=== PATIENT | male | born 1960 | race African-American/Black ===

== ENCOUNTER 2022-02-24 02:52 | Emergency (ER) | payer MEDICAID, SELFPAY ==
--- NOTE | ~2022-02-24 | XR_ITS ---
EXAMINATION: XR SHOULDER, RIGHT CLINICAL INFORMATION: Pain COMPARISON: None TECHNIQUE: Three views of the right shoulder. FINDINGS: Glenohumeral alignment is anatomic. No acute fracture is seen. Soft tissue calcification lateral to the humeral head favors calcific rotator cuff tendinopathy. The acromioclavicular joint appears intact with mild degenerative change. XR/XR shoulder RT min 2V IMPRESSION: Calcific rotator cuff tendinopathy. No acute osseous findings.
[2022-02-24 03:26] VITALS: BP 154/94; PULSE 81; RESP 20; TEMP 36.6; O2SAT 93; BMI 28.2
--- NOTE | 2022-02-24 03:30 | ED.EXTPRO ---
HPI - Extremity Problem General Chief complaint: Extremity Problem Stated complaint: right shoulder pain Time Seen by Provider: 02/24/22 03:30 Source: patient Mode of arrival: ambulatory Limitations: no limitations History of Present Illness MD Complaint: joint pain Onset (ago): day(s) (yesterday ) Pain Consistency: constant Location: right and upper extremity (shoulder) Quality: aching and constant Radiation: none Relieving factors: immobilization Exacerbating factors: range of motion and palpation Associated symptoms: denies other symptoms Context: other (woke up like this) Related Data Previous Rx's Medication Instructions Recorded cyclobenzaprine 10 mg tablet 10 mg PO TID PRN muscle spasm #14 02/24/22 tabs diclofenac sodium 1 % topical gel 2 g topical QID #100 grams 02/24/22 (Voltaren Arthritis Pain) prednisone 20 mg tablet 40 mg PO DAILY 5 days #10 tabs 02/24/22 Allergies Allergy/AdvReac Type Severity Reaction Status Date / Time Penicillins [PENICILLINS] Allergy Unknown UNKNOWN Verified 02/24/22 03:29 Review of Systems Review of Systems: Constitutional : No Fever, No Chills ENT/Mouth : No Ear Pain, No Hoarseness, No sore throat Eyes: No Eye Pain, No Swelling, No Redness, No Foreign Body Cardiovascular : No Chest Pain, No SOB Respiratory : No Cough, No Dyspnea Gastrointestinal : No Nausea, No Vomiting, No Diarrhea, No abdominal Pain Genitourinary : No Dysuria, No Hematuria Musculoskeletal : positive joint pain, No Myalgias, No Joint Swelling Skin : No Skin lacerations, No rash Neuro : No Weakness, No Numbness, No Loss of Consciousness, No Dizziness, No Headache [facility], [facility] Past Medical History Medical History Arthritis Asthma Social History Social History (Updated 02/24/22 @ 04:01 by Elisa Jon DO) Patient Tobacco Use Status: Current everyday Tobacco user Advance Directives: No Physical Exam Vital Signs: Vital Signs: Last Vital Signs Temp 97.9 F 02/24/22 03:26 Pulse 84 02/24/22 04:25 Resp 18 02/24/22 04:25 BP 146/80 H 02/24/22 04:25 Pulse Ox 98 02/24/22 04:25 O2 Del Method 02/24/22 04:25 BMI result Body Mass Index 28.2 Appearance: Alert. Oriented X3. No acute distress. Eyes: Pupils equal, round and reactive to light. ENT: Pharynx normal. Neck: Normal inspection. Neck supple. CVS: Normal heart rate and rhythm. Pulses normal. Respiratory: No respiratory distress. Breath sounds normal. Abdomen: atraumatic Skin: Skin warm and dry. Normal skin color. Normal skin turgor. Extremities: No lower extremity edema. R shoulder pain ttp along deltoid but no discoloration/redness/swelling noted, no R axillary swelling or LAD - distal NV intact Neuro: Oriented X 3. No motor deficit. No sensory deficit. MDM - Extremity (Nontraumatic) MDM Narrative Medical decision making narrative: 61 yo male with hx of asthma and arthritis comes in with atraumatic R shoulder pain - no signs of swelling or infection - distal NV intact. He will get xray. He took and ASA and a percocet that he had leftover from a doctor friendly gesture I have aches and pains . Dispo per results and findings. Procedures Orthopedic Splinting/Casting Injury #1: Side: right Upper Extremity Injury Location: shoulder Upper Extremity Immobilizer: sling/shoulder immobilizer Discharge Plan Discharge Clinical Impression: Tendonitis Acute shoulder pain Qualifiers: Laterality: right Qualified Code(s): M25.511 - Pain in right shoulder Patient Disposition: Home, Self-Care Instructions: Arthralgia (ED), Tendinitis (ED), Shoulder Pain (ED) Additional Instructions: return to ED for any worsening symptoms or concerns Prescriptions: New cyclobenzaprine 10 mg tablet 10 mg PO TID PRN (Reason: muscle spasm) Qty: 14 0RF diclofenac sodium [Voltaren Arthritis Pain] 1 % gel 2 g topical QID Qty: 100 0RF Rx Instructions: apply to single elbow, wrist or hand; for hand includes palm/fingers/back of hand prednisone 20 mg tablet 40 mg PO DAILY 5 Days Qty: 10 0RF Referrals: Physician,None [Primary Care Provider] - (PCP if not better in 2 days) Stand Alone Forms: Work/School Release
[2022-02-24] MEDS: Cyclobenzaprine HCl 10 MG TABLET PO (04:23)
[2022-02-24] MEDS: Acetaminophen 325 MG TABLET 650 MG PO (04:23)
[2022-02-24 04:25] VITALS: BP 146/80; PULSE 84; RESP 18; O2SAT 98
--- NOTE | 2022-02-24 05:14 | PC.NURSE ---
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
== END 2022-02-24 05:50 | disposition home or self-care (01) ==
PROVIDERS: Emergency Provider Emergency Medicine
DX: M75.31 Calcific tendinitis of right shoulder (principal); M25.511 Pain in right shoulder; F17.200 Nicotine dependence, unspecified, uncomplicated
CPT/HCPCS: 73030; 99283; 99284

== ENCOUNTER 2022-05-03 03:18 | Emergency (ER) | payer OTHER, SELFPAY ==
--- NOTE | ~2022-05-03 | XR_ITS ---
EXAMINATION: XR ankle RT min 3V, XR foot RT min 3V CLINICAL INFORMATION: Reason for Exam swelling COMPARISON: None. FINDINGS: No acute fracture or dislocation. Ankle mortise is congruent. Talar dome intact. Well-corticated ossific density distal to the medial malleolus is chronic and/or degenerative in nature. Small tibiotalar marginal osteophytes. Moderate plantar calcaneal enthesophyte. Prominent marginal osteophytes of the first metatarsophalangeal joint with accompanying joint space narrowing. Diffuse soft tissue swelling about the ankle. No ankle joint effusion. XR/XR ankle RT min 3V IMPRESSION: No acute fracture or dislocation.
--- NOTE | ~2022-05-03 | XR_ITS ---
EXAMINATION: XR ankle RT min 3V, XR foot RT min 3V CLINICAL INFORMATION: Reason for Exam swelling COMPARISON: None. FINDINGS: No acute fracture or dislocation. Ankle mortise is congruent. Talar dome intact. Well-corticated ossific density distal to the medial malleolus is chronic and/or degenerative in nature. Small tibiotalar marginal osteophytes. Moderate plantar calcaneal enthesophyte. Prominent marginal osteophytes of the first metatarsophalangeal joint with accompanying joint space narrowing. Diffuse soft tissue swelling about the ankle. No ankle joint effusion. XR/XR foot RT min 3V IMPRESSION: No acute fracture or dislocation.
--- NOTE | ~2022-05-03 | US_ITS ---
EXAMINATION: US VENOUS ULTRASOUND WITH DOPPLER LOWER EXTREMITY, BILATERAL CLINICAL INFORMATION: Lower extremity pain and swelling. COMPARISON: None TECHNIQUE: Ultrasound of the deep veins is performed from the hip to the calf with compression sonography and color and pulse Doppler assessment. Spectral analysis with color-flow imaging is performed. FINDINGS: There is normal venous compression and respiratory variation and augmented flow. The visualized common femoral vein, superficial femoral vein, profunda femoral vein, popliteal vein, and the trifurcation region shows no evidence of deep venous thrombosis. No right popliteal cyst bilaterally. Reniform inguinal lymph nodes in long axis of to 1.7 cm on the right and 1.2 cm on the left. No surrounding abnormality. If the patient's symptoms persist, followup ultrasound in 5 days 7 days might be of value to exclude proximal propagation from a non-visualized calf vein. US/US venous duplex LE RT IMPRESSION: No evidence for deep venous thrombus in the visualized veins of the bilateral lower extremities.
[2022-05-03 03:20] VITALS: BP 152/82; PULSE 86; RESP 19; TEMP 36.2; O2SAT 95; BMI 25.7
[2022-05-03 05:38] VITALS: BP 185/88; PULSE 77; RESP 18; TEMP 36.9; O2SAT 95
--- NOTE | 2022-05-03 08:08 | ED.EXTPRO ---
HPI - Extremity Problem General Chief complaint: Extremity Injury, Lower Stated complaint: R Ankle pain Time Seen by Provider: 05/03/22 08:08 Source: patient Mode of arrival: ambulatory Limitations: no limitations History of Present Illness HPI Narrative: 61 yo male with hx of arthritis notes R leg swelling and ankle giving out on him the past week. No known issues with swelling/kidneys not on diuretics. He denies travel or procedures. No known trauma. MD Complaint: extremity pain and extremity swelling Onset (ago): week(s) (1) Pain Consistency: constant Location: right and lower extremity Quality: aching and dull Radiation: none Relieving factors: immobilization Exacerbating factors: weight bearing and walking Associated symptoms: other (edema R > L leg) Related Data Previous Rx's Medication Instructions Recorded cyclobenzaprine 10 mg tablet 10 mg PO TID PRN muscle spasm #14 02/24/22 tabs diclofenac sodium 1 % topical gel 2 g topical QID #100 grams 02/24/22 (Voltaren Arthritis Pain) prednisone 20 mg tablet 40 mg PO DAILY 5 days #10 tabs 02/24/22 furosemide 20 mg tablet 20 mg PO DAILY #4 tabs 05/03/22 Allergies Allergy/AdvReac Type Severity Reaction Status Date / Time Penicillins [PENICILLINS] Allergy Unknown UNKNOWN Verified 02/24/22 03:29 Review of Systems Review of Systems: Constitutional : No Fever, No Chills ENT/Mouth : No Ear Pain, No Hoarseness, No sore throat Eyes: No Eye Pain, No Swelling, No Redness, No Foreign Body Cardiovascular : No Chest Pain, No SOB, pos edema Respiratory : No Cough, No Dyspnea Gastrointestinal : No Nausea, No Vomiting, No Diarrhea, No abdominal Pain Genitourinary : No Dysuria, No Hematuria Musculoskeletal : positive joint pain, No Myalgias, No Joint Swelling Skin : No Skin lacerations, No rash Neuro : No Weakness, No Numbness, No Loss of Consciousness, No Dizziness, No Headache Psych : No Anxiety/Panic, No Depression Heme/Lymph: no easy bruising, no Lymphadenopathy Endocrine : No Polyuria, No Polydipsia All other systems reviewed and are negative [facility] Past Medical History Attestation statement: The following information was validated with the patient. Medical History Arthritis Asthma Social History Social History Patient Tobacco Use Status: Current everyday Tobacco user Advance Directives: No Advance Directives Information Provided: Yes Physical Exam Vital Signs: Vital Signs: Last Vital Signs Temp 98.5 F 05/03/22 05:38 Pulse 77 05/03/22 05:38 Resp 18 05/03/22 05:38 BP 185/88 H 05/03/22 05:38 Pulse Ox 95 05/03/22 05:38 O2 Del Method 05/03/22 05:38 BMI result Body Mass Index 25.7 Appearance: Alert. Oriented X3. No acute distress. Eyes: Pupils equal, round and reactive to light. ENT: Pharynx normal. Neck: Normal inspection. Neck supple. CVS: Normal heart rate and rhythm. Pulses normal. Respiratory: No respiratory distress. Breath sounds normal. Abdomen: Soft and nontender. Skin: Skin warm and dry. Normal skin color. Normal skin turgor. Extremities: R> L 1+ pitting edema, ankle has swelling but no redness or warmth, distal pulses intact can range joint without pain Neuro: Oriented X 3. No motor deficit. No sensory deficit. Course Course Course Narrative: DVT study negative, xrays negative, labs wnl will start on lasix and refer to PCP place in splint for 1 week for comfort MDM - Extremity (Nontraumatic) MDM Narrative Medical decision making narrative: 61 yo male with hx of arthritis comes in with R > L leg swelling and ankle giving out no known trauma xrays negative at this time will obtain Cr, liver, BNP and DVT studies. Dispo per results and findings. Lab Data Result diagrams: 05/03/22 09:36 05/03/22 09:36 Labs: Lab Results 05/03/22 05/03/22 05/03/22 Range/Units 09:36 09:36 09:36 WBC 7.2 (4.8-10.8) X10*3/uL RBC 4.72 (4.60-5.80) X10*6/uL Hgb 13.6 L (14.0-18.0) g/dl Hct 43.5 (42.0-52.0) % MCV 92.2 (80.0-98.0) fL MCH 28.8 (27.0-33.0) pg MCHC 31.3 (31.0-36.0) g/dl RDW 14.0 (11.0-16.0) % Plt Count 287 (160-400) X10*3/uL MPV 10.6 (9.4-12.4) fL Immature Gran % (Auto) 0.4 (0.0-0.4) % Neut % (Auto) 60.2 (45-73) % Lymph % (Auto) 24.9 (20-40) % [place] % (Auto) 9.7 (2-11) % Eos % (Auto) 4.2 H (0-4) % Baso % (Auto) 0.6 (0-2) % Lymph # (Auto) 1.8 (1.2-4.9) X10*3/uL [place] # (Auto) 0.7 (0.1-1.2) X10*3/uL Eos # (Auto) 0.3 (0.0-0.4) X10*3/uL Baso # (Auto) 0.0 (0.0-0.2) X10*3/uL Abs Immat Gran (auto) 0.03 (0.00-0.03) X10*3/uL Absolute Neuts (auto) 4.3 (2.0-8.3) x10*3/uL Absolute Nucleated RBC 0.000 (0.0-0.012) X10*3/uL Nucleated RBC % (auto) 0.0 (0.0-0.2) /100WBC Sodium 139 (135-145) mmol/L Potassium 4.8 (3.3-5.1) mmol/L Chloride 98 (96-108) mmol/L Carbon Dioxide 29 (22-29) mmol/L Anion Gap 17 (12-20) BUN 7 L (9-16) mg/dL Creatinine 0.64 (0.5-1.4) mg/dL Estim Creat Clear Calc 139.1 Estimated GFR > 60 Random Glucose 102 (60-115) mg/dL Calcium 9.4 (8.4-10.2) mg/dL Total Bilirubin 0.3 (0.0-1.0) mg/dL Direct Bilirubin < 0.2 (0.0-0.5) mg/dL AST 18 (5-37) U/L ALT 21 (0-40) U/L Alkaline Phosphatase 106 (39-117) U/L B-Natriuretic Peptide 19 (<100) pg/mL Total Protein 7.5 (6.5-8.0) g/dL Albumin 4.1 (3.5-5.0) g/dL Procedures Orthopedic Splinting/Casting Injury #1: Side: right Lower Extremity Injury Location: ankle Lower Extremity Immobilizer: [employer] Discharge Plan Discharge Clinical Impression: Pedal edema Acute ankle pain Qualifiers: Laterality: right Qualified Code(s): M25.571 - Pain in right ankle and joints of right foot Patient Disposition: Home, Self-Care Instructions: Arthralgia (ED), Edema (ED) Additional Instructions: return to ED for any worsening symptoms or concerns wear compression stockings (soccer socks) take diuretics if not better please follow up with primary care doctor in 1 week Prescriptions: New furosemide 20 mg tablet 20 mg PO DAILY Qty: 4 0RF No Action cyclobenzaprine 10 mg tablet 10 mg PO TID PRN (Reason: muscle spasm) Qty: 14 0RF diclofenac sodium [Voltaren Arthritis Pain] 1 % gel 2 g topical QID Qty: 100 0RF Rx Instructions: apply to single elbow, wrist or hand; for hand includes palm/fingers/back of hand prednisone 20 mg tablet 40 mg PO DAILY 5 Days Qty: 10 0RF Stand Alone Forms: Work/School Release
[2022-05-03 09:45] LABS: MANUAL DIFF FLAG NO
[2022-05-03 10:00] LABS: Basophils Percent Auto 0.6 % (0-2); Eosinophils Absolute Auto 0.3 X10*3/uL (0.0-0.4); Eosinophils Percent Auto 4.2 % (0-4); Hematocrit 43.5 % (42.0-52.0); Hemoglobin 13.6 g/dl (14.0-18.0); Imm Gran Abs Auto 0.03 X10*3/uL (0.00-0.03); Imm Gran Pct Auto 0.4 % (0.0-0.4); Lymphocytes Absolute Auto 1.8 X10*3/uL (1.2-4.9); Lymphocytes Percent Auto 24.9 % (20-40); Mean Corpuscular HGB Conc 31.3 g/dl (31.0-36.0); Mean Corpuscular Hemoglobin 28.8 pg (27.0-33.0); Mean Corpuscular Volume 92.2 fL (80.0-98.0); Mean Platelet Volume 10.6 fL (9.4-12.4); Monocytes Absolute Auto 0.7 X10*3/uL (0.1-1.2); Monocytes Percent Auto 9.7 % (2-11); Neutrophils Absolute Auto 4.3 x10*3/uL (2.0-8.3); Neutrophils Percent Auto 60.2 % (45-73); Platelet Count 287 X10*3/uL (160-400); Red Blood Count 4.72 X10*6/uL (4.60-5.80); White Blood Count 7.2 X10*3/uL (4.8-10.8)
[2022-05-03 10:15] LABS: Alanine Aminotransferase 21 U/L (0-40); Albumin Level 4.1 g/dL (3.5-5.0); Alkaline Phosphatase 106 U/L (39-117); Anion Gap 17 (12-20); Aspartate Amino Transferase 18 U/L (5-37); B Type Natriuretic Peptide 19 pg/mL (<100); Bilirubin Direct < 0.2 mg/dL (0.0-0.5); Bilirubin Total 0.3 mg/dL (0.0-1.0); Blood Urea Nitrogen 7 mg/dL (9-16); Calcium 9.4 mg/dL (8.4-10.2); Carbon Dioxide 29 mmol/L (22-29); Chloride 98 mmol/L (96-108); Creatinine Clr Calc Pharmacy 139.1; Estimated Glomerular Filt Rate > 60; Glucose Random 102 mg/dL (60-115); Potassium 4.8 mmol/L (3.3-5.1); Sodium 139 mmol/L (135-145); Total Protein 7.5 g/dL (6.5-8.0)
== END 2022-05-03 10:36 | disposition home or self-care (01) ==
PROVIDERS: Emergency Provider Emergency Medicine
DX: R60.0 Localized edema (principal); M25.571 Pain in right ankle and joints of right foot; F17.200 Nicotine dependence, unspecified, uncomplicated
CPT/HCPCS: 36415; 73610; 73630; 80048; 80076; 83880; 85025; 93971; 99283; 99284

== ENCOUNTER 2022-09-21 06:09 | Outpatient (REF) | payer OTHER, SELFPAY ==
--- NOTE | ~2022-09-21 | XR_ITS ---
EXAMINATION: XR KNEE, LEFT CLINICAL INFORMATION: Pain. COMPARISON: No similar priors. TECHNIQUE: Four views of the left knee. FINDINGS: No acute fractures or subluxation. Moderate to severe tricompartmental joint space narrowing with subcortical sclerosis and marginal osteophytes. No chondrocalcinosis. Small joint effusion. No abnormal soft tissue calcifications. XR/XR knee LT 3V IMPRESSION: 1. No acute fractures or subluxation. 2. Moderate to severe tricompartmental osteoarthritis. 3. Small joint effusion.
[2022-09-21 06:22] LABS: MANUAL DIFF FLAG NO
[2022-09-21 07:57] LABS: Basophils Absolute Auto 0.1 X10*3/uL (0.0-0.2); Basophils Percent Auto 0.9 % (0-2); Eosinophils Absolute Auto 0.6 X10*3/uL (0.0-0.4); Eosinophils Percent Auto 5.7 % (0-4); Hemoglobin 13.7 g/dl (14.0-18.0); Imm Gran Abs Auto 0.05 X10*3/uL (0.00-0.03); Imm Gran Pct Auto 0.5 % (0.0-0.4); Lymphocytes Absolute Auto 3.8 X10*3/uL (1.2-4.9); Lymphocytes Percent Auto 37.4 % (20-40); Mean Corpuscular HGB Conc 31.9 g/dl (31.0-36.0); Mean Corpuscular Hemoglobin 29.7 pg (27.0-33.0); Mean Corpuscular Volume 93.3 fL (80.0-98.0); Mean Platelet Volume 10.7 fL (9.4-12.4); Monocytes Percent Auto 9.6 % (2-11); Neutrophils Absolute Auto 4.7 x10*3/uL (2.0-8.3); Neutrophils Percent Auto 45.9 % (45-73); Platelet Count 288 X10*3/uL (160-400); Red Blood Count 4.61 X10*6/uL (4.60-5.80); Red Cell Distribution Width 13.9 % (11.0-16.0); White Blood Count 10.2 X10*3/uL (4.8-10.8)
[2022-09-21 08:26] LABS: Alanine Aminotransferase 45 U/L (0-40); Albumin Level 3.9 g/dL (3.5-5.0); Alkaline Phosphatase 115 U/L (39-117); Anion Gap 14 (12-20); Aspartate Amino Transferase 26 U/L (5-37); Bilirubin Total 0.3 mg/dL (0.0-1.0); Blood Urea Nitrogen 10 mg/dL (9-16); Calcium 8.9 mg/dL (8.4-10.2); Carbon Dioxide 29 mmol/L (22-29); Chloride 105 mmol/L (96-108); Cholesterol 109 mg/dL; Estimated Glomerular Filt Rate > 60; Glucose Fasting 133 mg/dL (60-99); HDL Cholesterol 43 mg/dL; LDL Cholesterol Calculated 46 mg/dl; Potassium 3.9 mmol/L (3.3-5.1); Sodium 144 mmol/L (135-145); Total Protein 6.6 g/dL (6.5-8.0); Triglycerides 103 mg/dL
[2022-09-21 08:43] LABS: Erythrocyte Sedimentation Rate 8 MM/HR (0-15)
[2022-09-21 08:44] LABS: Prostate Specific Antigen Scr 0.68 ng/mL (<0.05-4.0); TSH reflex Free T4 2.04 uIU/mL (0.32-4.0)
== END 2022-09-21 06:10 | disposition home or self-care (01) ==
LOC: HO.LAB 06:09
PROVIDERS: PCP Family Medicine; Visit Provider Family Medicine
DX: Z00.00 Encounter for general adult medical examination without abnormal findings (principal); Z12.5 Encounter for screening for malignant neoplasm of prostate; M25.562 Pain in left knee
CPT/HCPCS: 36415; 73562; 80053; 80061; 84153; 84443; 85025; 85652

== ENCOUNTER 2022-10-05 12:26 | Outpatient (REF) | payer OTHER, SELFPAY ==
--- NOTE | ~2022-10-05 | XR_ITS ---
EXAMINATION: XR KNEE AP STANDING CLINICAL INFORMATION: Pain. COMPARISON: None TECHNIQUE: AP bilateral standing view of the knees was obtained. FINDINGS: Bony mineralization is normal. There is moderately severe narrowing of the medial joint space compartment of the right knee, and the lateral joint space compartment is well-maintained. The lateral and medial joint space compartments of the right knee show slight peripheral osteophyte formation. There is mild to moderate narrowing of the lateral joint space compartment of the left knee, and the medial joint space compartment is well-maintained. There is a mild varus configuration of the right knee. XR/XR knee standing BI IMPRESSION: 1. There is moderately severe osteoarthritic change of the medial joint space compartment of the right knee, and very mild osteoarthritic change is seen of the lateral joint space compartment. There is a secondary mild varus configuration. 2. There is mild to moderate osteoarthritic change of the lateral joint space compartment of the left knee.
== END 2022-10-05 12:27 | disposition home or self-care (01) ==
LOC: HO.HOSX 12:26
PROVIDERS: Visit Provider Physician Assistant
DX: M17.12 Unilateral primary osteoarthritis, left knee (principal)
CPT/HCPCS: 20610; 73565; 99202; J1040

== ENCOUNTER 2022-11-10 09:45 | Outpatient (REF) | payer OTHER, SELFPAY ==
[2022-11-10 12:19] LABS: Alanine Aminotransferase 35 U/L (0-40); Albumin Level 3.9 g/dL (3.5-5.0); Alkaline Phosphatase 120 U/L (39-117); Anion Gap 11 (12-20); Aspartate Amino Transferase 26 U/L (5-37); Bilirubin Total 0.4 mg/dL (0.0-1.0); Blood Urea Nitrogen 8 mg/dL (9-16); Calcium 9.1 mg/dL (8.4-10.2); Carbon Dioxide 35 mmol/L (22-29); Chloride 102 mmol/L (96-108); Estimated Glomerular Filt Rate > 60; Glucose Fasting 105 mg/dL (60-99); Potassium 4.7 mmol/L (3.3-5.1); Sodium 143 mmol/L (135-145); Total Protein 6.8 g/dL (6.5-8.0)
[2022-11-10 12:21] LABS: B Type Natriuretic Peptide 11 pg/mL (<100)
== END 2022-11-10 09:46 | disposition home or self-care (01) ==
LOC: HO.WFDLDS 09:45
PROVIDERS: Visit Provider Family Medicine
DX: Z00.00 Encounter for general adult medical examination without abnormal findings (principal); I50.9 Heart failure, unspecified; R73.01 Impaired fasting glucose
CPT/HCPCS: 36415; 80053; 83880

== ENCOUNTER → 2022-11-17 09:11 | Outpatient (BNVA) | payer OTHER, SELFPAY | PROVIDERS: PCP Family Medicine; Visit Provider Physician Assistant | DX: M17.12 Unilateral primary osteoarthritis, left knee (principal); M25.562 Pain in left knee | CPT/HCPCS: 99212 ==

== ENCOUNTER → 2022-12-21 09:21 | Outpatient (BNVA) | payer OTHER, SELFPAY | PROVIDERS: PCP Family Medicine; Visit Provider Surgery Vascular Surgery | DX: I83.11 Varicose veins of right lower extremity with inflammation (principal); F17.210 Nicotine dependence, cigarettes, uncomplicated | CPT/HCPCS: 99202 ==

== ENCOUNTER 2022-12-26 09:00 | Outpatient (RCR) | payer OTHER, SELFPAY ==
--- NOTE | 2022-11-07 13:55 | MHC.PT.EP ---
[facility] [place] Office [place] Office [place] Office [address] Lesia Urbina [address] [phone] F: [phone] F: [phone] F: [phone] F: [phone] Physical Therapy Plan of Care Date of Evaluation: Date of Surgery: N/A Diagnosis: OA of the L knee () Assessment: pt is a 62 y/o male presenting to physical therapy w/ referring diagnosis of osteoarthritis of left knee. Impairments include pain, decreased range of motion, decreased strength, impaired functional mobility, impaired postural awareness, and altered ambulation mechanics. pt is a good candidate for skilled PT due to age, potential remediation of impairments, typical disease/condition progression and prognosis, comorbidities, and motivation. pt would benefit from skilled PT intervention to provide a tailored strengthening and stretching exercise program, functional training, gait training, postural re-training, neuromuscular re-education, modalities as needed for pain, equipment safety demonstration. Frequency and Duration: The patient will be seen 2x/wk for 4 wks Short Term Goals: pt will be I w/ HEP to promote self-management of condition. pt will improve L knee extension to 0 degrees to improve stair tolerance. [facility] Goals: pt will improve L knee strength to 5/5 to promote ease in sit to stand transfers. pt will report a statistically significant improvement in self-reported outcome, LEFI, to promote return to PLOF. Treatment Plan: Modalities to reduce pain, spasms and effusion. Manual therapy to restore motion and function. Therapeutic exercise to improve strength and flexibility. Neuromuscular re-education for posture and balance. Therapeutic activities to return to functional activities of daily living. Electronically signed by: Dary Gomez PT, DPT Please sign and return to therapist. Thank you for your referral.
--- NOTE | 2023-01-15 15:07 | MHC.PT.DC ---
[facility] [place] Office [place] Office [place] Office [address] Lesia Urbina 140 [facility] [phone] F: [phone] F: [phone] F: [phone] F: [phone] Physical Therapy Discharge Report Diagnosis: OA of the L knee (RC) Date of Surgery: N/A Date of Evaluation: 11/07/22 Date of Discharge: 01/15/23 Treatments to Date: 6 Cancellations to Date: 5 No Shows to Date: 0 Discharge Status: Visit Non-compliance Discharge Summary: The patient has not been seen in nearly three weeks. He has not followed-up to schedule any additional appointments. He is being discharged at this time. His plan of care was complicated by other comorbidities and multiple other medical appointments for screenings. Electronically signed by: Dary Gutierrez PT, DPT Please sign and return to therapist. Thank you for your referral.
== END 2023-01-15 15:07 | disposition home or self-care (01) ==
LOC: HO.PT 09:00
PROVIDERS: PCP Family Medicine; Visit Provider Physician Assistant
DX: M17.12 Unilateral primary osteoarthritis, left knee (principal)
CPT/HCPCS: 97110; 97140; 97162

== ENCOUNTER 2023-01-08 08:28 | Outpatient (REF) | payer OTHER, SELFPAY ==
--- NOTE | ~2023-01-08 | US_ITS ---
EXAMINATION: US LOWER EXTREMITY VENOUS (REFLUX EXAM), BILATERAL CLINICAL INDICATION: Varicose veins COMPARISON: None. TECHNIQUE: Color flow triplex imaging and compression Doppler was performed to evaluate both the deep and the superficial systems bilaterally. To evaluate the superficial system, the examination was performed in the upright position. Color-flow Doppler ultrasound and compression ultrasound were utilized. In addition, maneuvers were utilized to demonstrate reflux. FINDINGS: 1. DEEP VENOUS ULTRASOUND OF THE RIGHT LOWER EXTREMITY: Common Femoral Vein: Compressible, normal respiratory variation and augmented flow. Femoral Vein: Compressible, normal color flow and augmentation. Popliteal Vein: Compressible, normal augmentation. Deep Reflux: There is no evidence of reflux in the deep system in either the common femoral vein or the popliteal vein. There is no evidence of a Musa's cyst. 2. SUPERFICIAL ULTRASOUND WITH DOPPLER OF RIGHT LOWER EXTREMITY: GREAT SAPHENOUS VEIN: Saphenofemoral Junction: 0.8 cm; Reflux: 0 ms Proximal Thigh: 0.6 cm; Reflux: 0 ms Mid Thigh: 0.2 cm; Reflux: 0 ms Above Knee: 0.3 cm; Reflux: 1248 ms At Knee: 0.3 cm; Reflux: 1888 ms Below Knee: 0.3 cm; Reflux: 2872 ms Mid Calf: 0.2 cm; Reflux: 2828 ms Ankle: 0.3 cm; Reflux: 0 ms DUPLICATED MEDIAL GREAT SAPHENOUS VEIN: Diameter: None imaged Reflux: NA DUPLICATED LATERAL GREAT SAPHENOUS VEIN: Proximal: 0.4 cm; Reflux: 0 ms Distal: 0.3 cm; Reflux: 0 ms SMALL SAPHENOUS VEIN: Proximal: 0.5 cm; Reflux: 0 ms Distal: 0.4 cm; Reflux: 0 ms VEIN OF GIACOMINI: Size: NA Reflux: NA PERFORATORS: Location: Distal calf Size: 0.2cm Reflux: NA VARICOSITIES: Location: Thigh prox Size: 0.3cm Reflux: 0 Location: Prox calf Size: 0.3cm Reflux: [id number] 3. DEEP VENOUS ULTRASOUND OF THE LEFT LOWER EXTREMITY: Common Femoral Vein: Compressible, normal respiratory variation and augmented flow. Femoral Vein: Compressible, normal color flow and augmentation. Popliteal Vein: Compressible, normal augmentation. Deep Reflux: There is no evidence of reflux in the deep system in either the common femoral vein or the popliteal vein. There is no evidence of a Musa's cyst. 4. SUPERFICIAL ULTRASOUND WITH DOPPLER OF LEFT LOWER EXTREMITY: GREAT SAPHENOUS VEIN: Saphenofemoral Junction: 0.8 cm; Reflux: 0 ms Proximal Thigh: 0.4 cm; Reflux: 0 ms Mid Thigh: 0.3 cm; Reflux: 0 ms Above Knee: 0.3 cm; Reflux: 0 ms At Knee: 0.3 cm; Reflux: 0 ms Below Knee: 0.2 cm; Reflux: 0 ms Mid Calf: 0.2 cm; Reflux: 0 ms Ankle: 0.2 cm; Reflux: 0 ms DUPLICATED MEDIAL GREAT SAPHENOUS VEIN: Diameter: None imaged Reflux: NA DUPLICATED LATERAL GREAT SAPHENOUS VEIN: Proximal: 0.6 cm; Reflux: 0 ms Distal: 0.3 cm; Reflux: 488 ms SMALL SAPHENOUS VEIN: Proximal: 0.7 cm; Reflux: 0 ms Distal: 0.3 cm; Reflux: 0 ms VEIN OF GIACOMINI: Size: NA Reflux: NA PERFORATORS: Location: None imaged Size: NA Reflux: NA VARICOSITIES: Location: None Imaged Size: NA Reflux: NA US/US venous duplex LE BI IMPRESSION: 1. Right: Moderate reflux in the great saphenous vein [id number]. 2. Right small saphenous venous insufficiency. 3. Left: No significant reflux in the great saphenous vein. 4. Reflux in the distal left great saphenous vein.
== END 2023-01-08 08:29 | disposition home or self-care (01) ==
LOC: HO.US 08:28
PROVIDERS: PCP Family Medicine; Visit Provider Surgery Vascular Surgery
DX: I83.11 Varicose veins of right lower extremity with inflammation (principal)
CPT/HCPCS: 93970

== ENCOUNTER 2023-01-26 09:48 | Outpatient (REF) | payer OTHER, SELFPAY ==
--- NOTE | ~2023-01-26 | US_ITS ---
EXAMINATION: US RETROPERITONEAL LIMITED (AORTA) CLINICAL INFORMATION: Family history of AAA. History of smoking. COMPARISON: None available. TECHNIQUE: Griffith-scale, color Doppler and spectral Doppler evaluation of the abdominal aorta. Imaging is somewhat limited by overlapping bowel gas. FINDINGS: The aorta is normal. The measurements of the aorta in maximum AP and transverse dimensions respectively are as follows: Proximal: 2.7 x 2.6 cm. Mid: 2.4 x 2.4 cm. Distal: 2.0 x 2.0 cm. PSV: 87.7 cm/s. The measurements of the common iliac arteries in maximum AP and TRV dimensions are as follows: Right Common Iliac Artery: 1.3 x 1.2 cm. Left Common Iliac Artery: 1.2 x 1.1 cm. US/US abdominal aortic aneurysm IMPRESSION: There is ectasia of the proximal abdominal aorta, without brittany aneurysm formation.
== END 2023-01-26 09:49 | disposition home or self-care (01) ==
LOC: HO.US 09:48
PROVIDERS: PCP Family Medicine; Visit Provider Surgery Vascular Surgery
DX: Z13.6 Encounter for screening for cardiovascular disorders (principal)
CPT/HCPCS: 76706

== ENCOUNTER 2023-02-20 13:53 | Outpatient (AMB) | payer OTHER, SELFPAY ==
--- NOTE | 2023-02-20 13:54 | A.OFFVIS_ITS ---
Intake Intake Visit Reasons: follow up US 01/08/23 &AAA US 01/26/23 Intake Note: Patient is here for a follow up US 01/08/23 and AAA US 01/26/23, patient stated no new symptoms Allergies Penicillins [PENICILLINS] Allergy (Unknown, Verified 02/20/23 13:57) UNKNOWN HPI follow up US 01/08/23 &AAA US 01/26/23 HPI Details Very pleasant 62-year-old gentleman presents for follow-up regarding venous insufficiency. He reports that he has discomfort in bilateral lower extremities in some spots unsteadiness. In addition he does report some back issues. He states that his right leg occasionally has swelling more so in the ankle and calf region in addition he does have some restless leg on that lower extremity as well. He now presents for follow-up regarding his venous insufficiency and he did get a surveillance aortic scan as well. Now presents for vascular evaluation. [facility] Medical History Arthritis Asthma History of [place] (myocardial infarction) Surgical History H/O heart artery stent (~2001) H/O shoulder surgery (~1976) Family History Sister Substance abuse Social History Patient Tobacco Use Status: Current everyday Tobacco user Cigarette Packs Per Day: 1 e-Cigarette/Vaping Use: Never Used Second Hand Smoke Exposure: No service: No Current occupational status: employed Cognitive needs: No Hearing needs: No Vision needs: No Review of Systems Const All systems reviewed & are unremarkable except as noted in HPI and below Reports no additional complaints ENT Reports Normal hearing present Card Denies chest pain, Denies chest pain at rest, Denies chest pain with activity and Denies pedal edema Resp Denies cough GI Denies abdominal pain Musc Denies abnormal gait, Denies muscle cramps and Denies radiating pain into limb Skin/Breast Denies skin ulcer and Denies wounds Neuro Reports Normal hearing present and Denies abnormal gait Psych Reports no additional complaints Physical Exam Const General: cooperative, healthy appearing and comfortable Orientation/consciousness: oriented to person, oriented to place and oriented to time HEENT Head: Yes normal to inspection Neck Neck: Yes normal visual inspection Carotids: no bruits Chest Chest palpation & inspection: normal inspection of the chest Resp Effort & Inspection: normal respiratory effort and able to speak in complete sentences Auscultation: clear to auscultation bilaterally, no crackles, no rales, no rhonchi and no wheezes Cardio Rate: regular rate Rhythm: regular rhythm Heart sounds: S1 normal heart sound present and S2 normal heart sound present Bruits: no carotid bruits Peripheral pulses: Peripheral pulses 2+ throughout GI Inspection: Yes normal to inspection Skin Wounds: no wounds Hair: normal Neuro General: oriented to person, oriented to place and oriented to time Cranial nerves: Yes CN's II-XII intact bilaterally and Yes Normal hearing present Cognition (Neuro): normal cognition Motor exam (neuro): 5/5 motor strength present throughout Extrem Other: venous exam: +2 edema right lower extremity General: No clubbing, No cyanosis and Yes edema Psych Appearance: grossly normal Mental Status: mental status grossly normal Speech and movement: Normal speech and movement present Results Reviewed Results Reviewed: Brief summary of venous insufficiency testing is as follows: right great saphenous vein: Positive right small saphenous vein: negative right accessory vein: none present left great saphenous vein: negative left small saphenous vein: negative left accessory vein: none present Please note there is no evidence of any venous aneurysms or significant tortuosity Aortic ultrasound is negative for any aneurysmal disease. Maximal diameter is 2.4 cm. Written report and images of both were reviewed Assessment & Plan Assessment & Plan (1) Varicose veins of right lower extremity with inflammation: Code(s): I83.11 - Varicose veins of right lower extremity with inflammation Plan: This patient has varicose veins with inflammation. They continue to be a source of discomfort for the patient. The patient has tried conservative treatment with compression, leg elevation and exercise program for over 3 months time. They have been compliant with all treatment. This has provided minimal relief for the patient. I do not anticipate this course of treatment will alter the underlying etiology. The patient has been scheduled for lower extremity venous treatment inclusive of --- right great saphenous vein Cyanoacralate ablation. Risks, benefits, and complications of this procedure has been di scussed in detail with the patient including but not limited to bleeding, infection, and the development of a DVT. The patient has demonstrated a clear understanding and has consented. We will schedule the patient as soon as possible. Thank you for allowing us to participate in this patient's care. If there are any questions or concerns please do not hesitate to contact us. (2) Encounter for abdominal aortic aneurysm (AAA) screening: Code(s): Z13.6 - Encounter for screening for cardiovascular disorders Plan: Negative for any aneurysmal disease on screening ultrasound. We did discuss routine risk factor modification P Coding Level of Care Code Est Pt Level 4 (30501) Diagnoses Varicose veins of right lower extremity with inflammation I83.11 Encounter for abdominal aortic aneurysm (AAA) screening Z13.6
== END 2023-02-20 14:40 | disposition home or self-care (01) ==
PROVIDERS: PCP Family Medicine; Visit Provider Surgery Vascular Surgery
DX: I73.9 Peripheral vascular disease, unspecified (principal); I65.29 Occlusion and stenosis of unspecified carotid artery
CPT/HCPCS: 99214

== ENCOUNTER → 2023-02-20 13:53 | Outpatient (BNVA) | payer OTHER, SELFPAY | PROVIDERS: PCP Family Medicine; Visit Provider Surgery Vascular Surgery | DX: I83.11 Varicose veins of right lower extremity with inflammation (principal); Z13.6 Encounter for screening for cardiovascular disorders | CPT/HCPCS: 99212 ==

== ENCOUNTER 2023-03-30 07:30 | Outpatient (AMB) | payer OTHER, SELFPAY ==
[2023-03-30 07:47] VITALS: BMI 31.8
--- NOTE | 2023-03-30 07:47 | MHC.OFFVIS ---
Intake Vital Signs 03/30/23 07:47 Height 6 ft 2 in Weight 248 lb BMI 31.8 Intake Visit Reasons: Right GSV Venaseal Allergies Penicillins [PENICILLINS] Allergy (Unknown, Verified 02/20/23 13:57) UNKNOWN [facility] Medical History Arthritis Asthma History of [place] (myocardial infarction) Surgical History H/O heart artery stent (~2001) H/O shoulder surgery (~1976) Family History Sister Substance abuse Social History Patient Tobacco Use Status: Current everyday Tobacco user Cigarette Packs Per Day: 1 e-Cigarette/Vaping Use: Never Used Second Hand Smoke Exposure: No service: No Current occupational status: employed Cognitive needs: No Hearing needs: No Vision needs: No Physical Exam Vital Signs: BMI result Body Mass Index 31.8 Office Procedures Vascular Office Procedure Details Details: Diagnosis: Right Leg varicose veins with inflammation Procedure: Endovenous Ablation of the right Great Saphenous Vein with VenaSeal Closure System Anesthesia: Local infiltration 5 cc, Estimated Blood Loss: min Specimen: none Duplex ultrasound was used to map out the insufficient saphenous vein, and access was determined and marked on the overlying skin. The depth and diameter of the vein(s) to be treated was documented. The patient was placed supine on the procedure table and the leg was prepped and draped using sterile technique. Ultasound guidance was again used to localize the access site. 1% lidocaine was injected as a local anesthetic in the subcutaneous tissues at the target location in the GSV in the lower leg. Using ultrasound guidance, access was gained at this location with the 19 gauge thin walled access needle and followed by introduction of a short guidewire, location confirmed with ultrasound. A small, 3 mm incision was made at the access site to allow for introduction and placement of the 7 Fr x7cm introducer/dilator. The dilator and guidewire were removed. The 0.035 guidewire from the VenaSeal kit was then introduced and positioned at the saphenofemoral junction using ultrasound guidance. The 80 cm 7 Fr introducer sheath/dilator was positioned 5cm from the saphenofemoral junction. The guidewire and dilator were removed, and the remaining sheath was flushed with sterile saline, with the syringe remaining in place prior to the next steps. The cyanoacrylate adhesive was precisely primed into the 5 F delivery catheter and this catheter/syringe combination was attached within the dispenser gun. This assembly was introduced through the 7F sheath and positioned 5 cm caudal of the saphenofemoral junction under ultrasound guidance. The steps from the IFU were followed for dispensing amounts, locations and compression times, 2 aliquots proximally with 3 minutes of compression, and 1 aliquot every 3 cm distally with 30 sec of compression along the course of the vessel. Following the last injection and compression sequence, the catheter and introducer sheath were pulled out from the access site. Hemostasis was achieved with manual compression and an adhesive bandage was applied to the incision. Ultrasound confirmed complete coaptation and closure of the treated segments of the GSV, and the absence of any DVT at the saphenofemoral junction. Treatment time was approximately 7 minutes and the vein length treated was 52 cm. The drapes were removed and the patient cleaned and prepared for discharge. Post op ultrasound check is scheduled for 48-72 hours and the patient was given written post-op instructions. 40810 - Endoven Ther Chem Adhes 1st All charges added?: Procedure code (CPT) selection complete Coding Level of Care Code Procedure Only Diagnoses CPT Codes Details - Vascular 3: 43286 - Endoven Ther Chem Adhes 1st ([id number])
== END 2023-03-30 09:04 | disposition home or self-care (01) ==
PROVIDERS: PCP Family Medicine; Visit Provider Surgery Vascular Surgery
DX: I83.11 Varicose veins of right lower extremity with inflammation (principal)
CPT/HCPCS: 36482

== ENCOUNTER → 2023-03-30 07:30 | Outpatient (BNVA) | payer OTHER, SELFPAY | PROVIDERS: PCP Family Medicine; Visit Provider Surgery Vascular Surgery | DX: I83.11 Varicose veins of right lower extremity with inflammation (principal) | CPT/HCPCS: 36482 ==

== ENCOUNTER 2023-04-02 10:19 | Outpatient (REF) | payer OTHER, SELFPAY ==
--- NOTE | ~2023-04-02 | US_ITS ---
EXAMINATION: US VENOUS ULTRASOUND WITH DOPPLER LOWER EXTREMITY, RIGHT CLINICAL INFORMATION: Pain in the right leg COMPARISON: None available. TECHNIQUE: Ultrasound of the deep veins is performed from the hip to the calf with compression sonography and color and pulse Doppler assessment. Spectral analysis with color-flow imaging is performed. FINDINGS: There is normal venous compression and respiratory variation and augmented flow. The visualized common femoral vein, superficial femoral vein, profunda femoral vein, popliteal vein, and the trifurcation region shows no evidence of deep venous thrombosis. There is no significant popliteal fossa cyst. Patient is status post venaseal of greater saphenous vein measured 6.8 cm from superficial femoral junction If the patient's symptoms persist, followup ultrasound in 5 days 7 days might be of value to exclude proximal propagation from a non-visualized calf vein. US/US venous duplex LE RT IMPRESSION: No DVT demonstrated in the right lower extremity.
== END 2023-04-02 10:20 | disposition home or self-care (01) ==
LOC: HO.US 10:19
PROVIDERS: PCP Family Medicine; Visit Provider Surgery Vascular Surgery
DX: M79.604 Pain in right leg (principal)
CPT/HCPCS: 93971

== ENCOUNTER 2023-04-12 08:40 | Outpatient (AMB) | payer OTHER, SELFPAY ==
--- NOTE | 2023-04-12 08:47 | MHC.OFFVIS ---
Intake Vital Signs 04/12/23 08:53 Height 6 ft 2 in Weight 248 lb BMI 31.8 BP 150/88 H Blood Pressure Location Rt brachial Position Sitting Pulse 104 H Pulse Source Pulse Oximeter Pulse Oximetry (%) 99 Oxygen Delivery Method Room Air Intake Visit Reasons: 2 week follow up s/p Right GSV Venaseal 03/30/23 Intake Note: Pt presents to the office today for a 2 week follow up s/p right GSV venaseal 03/30/23. Pt states he is feeling great. Pt states he had swelling in his right leg for a day but it went away after 1 day. Pt denies any numbness or tingling in his feet. Pt states he is using compression stockings but doesn't believe they help. Allergies Penicillins [PENICILLINS] Allergy (Unknown, Verified 04/12/23 08:54) UNKNOWN HPI 2 week follow up s/p Right GSV Venaseal 03/30/23 HPI Details Very pleasant 62-year-old gentleman status post right great saphenous vein ablation. Reports he is doing fairly well from the right leg. He does have some occasional leg cramping. He does attribute this to it being more musculoskeletal and more recently the extreme heat that we been experiencing. In general he reports that the right leg is doing significantly better since ablation. Of note postprocedure ultrasound was negative for DVT. [facility] Medical History History of [place] (myocardial infarction) Asthma Arthritis Surgical History H/O shoulder surgery (~1976) H/O heart artery stent (~2001) Family History Sister Substance abuse Social History Patient Tobacco Use Status: Current everyday Tobacco user Cigarette Packs Per Day: 1 e-Cigarette/Vaping Use: Never Used Second Hand Smoke Exposure: No service: No Current occupational status: employed Cognitive needs: No Hearing needs: No Vision needs: No Review of Systems Const All systems reviewed & are unremarkable except as noted in HPI and below Reports no additional complaints ENT Reports Normal hearing present Card Denies chest pain, Denies chest pain at rest, Denies chest pain with activity and Denies pedal edema Resp Denies cough GI Denies abdominal pain Musc Denies abnormal gait, Denies muscle cramps and Denies radiating pain into limb Skin/Breast Denies skin ulcer and Denies wounds Neuro Reports Normal hearing present and Denies abnormal gait Psych Reports no additional complaints Physical Exam Vital Signs: Last Vital Signs Pulse 104 H 04/12/23 08:53 BP 150/88 H 04/12/23 08:53 Pulse Ox 99 04/12/23 08:53 Oxygen Delivery Method Room Air 04/12/23 08:53 BMI result Body Mass Index 31.8 Const General: cooperative, healthy appearing and comfortable Orientation/consciousness: oriented to person, oriented to place and oriented to time HEENT Head: Yes normal to inspection Neck Neck: Yes normal visual inspection Carotids: no bruits Chest Chest palpation & inspection: normal inspection of the chest Resp Effort & Inspection: normal respiratory effort and able to speak in complete sentences Auscultation: clear to auscultation bilaterally, no crackles, no rales, no rhonchi and no wheezes Cardio Rate: regular rate Rhythm: regular rhythm Heart sounds: S1 normal heart sound present and S2 normal heart sound present Bruits: no carotid bruits Peripheral pulses: Peripheral pulses 2+ throughout GI Inspection: Yes normal to inspection Skin Wounds: no wounds Hair: normal Neuro General: oriented to person, oriented to place and oriented to time Cranial nerves: Yes CN's II-XII intact bilaterally and Yes Normal hearing present Cognition (Neuro): normal cognition Motor exam (neuro): 5/5 motor strength present throughout Extrem Other: venous exam: No significant superficial varicosities or spider telangiectasias, minimal edema General: No clubbing, No cyanosis and No edema Psych Appearance: grossly normal Mental Status: mental status grossly normal Speech and movement: Normal speech and movement present Assessment & Plan Assessment & Plan (1) Varicose veins of right lower extremity with inflammation: Comment: 03/30/2023 - right great saphenous vein Cyanoacralate ablation Code(s): I83.11 - Varicose veins of right lower extremity with inflammation Plan: The patient has done extremely well with all venous treatments. Patient's may often experience postprocedure phlebitic episodes and I have discussed with the patient use of warm compresses and NSAIDS if tolerated for pain discomfort. In addition, I have discussed continued conservative measures including use of compression, leg elevation, and exercise. The patient was also given an information sheet regarding appropriate use of compression stockings and future purchases. Thank you for allowing us to care for your patient with venous disease. Coding Level of Care Code Est Pt Level 3 (30652) Diagnoses Varicose veins of right lower extremity with inflammation I83.11
[2023-04-12 08:53] VITALS: BP 150/88; PULSE 104; O2SAT 99; BMI 31.8
== END 2023-04-12 09:14 | disposition home or self-care (01) ==
PROVIDERS: PCP Family Medicine; Visit Provider Surgery Vascular Surgery
DX: I83.11 Varicose veins of right lower extremity with inflammation (principal)
CPT/HCPCS: 99213

== ENCOUNTER → 2023-04-12 08:40 | Outpatient (BNVA) | payer OTHER, SELFPAY | PROVIDERS: PCP Family Medicine; Visit Provider Surgery Vascular Surgery | DX: I83.11 Varicose veins of right lower extremity with inflammation (principal) | CPT/HCPCS: 99212 ==

== ENCOUNTER 2023-04-18 08:39 | Outpatient (AMB) | payer OTHER, SELFPAY ==
[2023-04-18 08:48] VITALS: BP 140/70; PULSE 92; RESP 12; TEMP 36.6; O2SAT 96; BMI 30.1
--- NOTE | 2023-04-18 08:48 | MHC.PC.OV ---
Vital Signs 04/18/23 08:48 Height 6 ft 2 in Weight 234 lb 6 oz BMI 30.1 BP 140/70 H Blood Pressure Location Lt brachial Position Sitting Respiration 12 Pulse 92 Pulse Source Pulse Oximeter Temp 97.8 F Temp Source Temporal Artery Scan Pulse Oximetry (%) 96 Oxygen Delivery Method Room Air Intake Visit Reasons: follow up LE edema and labs Intake Note: Patient states that hes unable to lift left arm past a certain point. States that he had 12 screws in 1969 to repair his left shoulder. Patient states that he would like a refill on Diclofenac Gel and Diclofenac Sodium. Net Sql Developer Required: No Accompanied by: Self / Same As Patient Allergies Penicillins [PENICILLINS] Allergy (Unknown, Verified 04/18/23 08:57) UNKNOWN Medication List - Last Reconciled 04/18/23 by Abhishek Ortiz MD albuterol sulfate 90 mcg/actuation (ProAir HFA) 2 puffs inhalation Q6H PRN 30 days albuterol sulfate 90 mcg/actuation (Ventolin HFA) 2 puffs inhalation Q4-6H PRN 30 days atorvastatin 80 mg PO BEDTIME 90 days diclofenac sodium 1% (Voltaren Arthritis Pain) 2 grams topical QID diclofenac sodium 50 mg PO TID PRN 30 days furosemide 40 mg (2 x 20 mg) PO DAILY 90 days Tobacco use date assessed: 08/31/22 Dental Screening Dental Screen Date: 04/18/23 Did you have a dental visit in the last 12 months?: No Did you have a dental problem in the last 6 months where you did not have access to dental care?: No Was dental information given to patient?: Yes HPI follow up LE edema and labs HPI Details 62 y/o male presents to f/u LE edema and labs. Had [facility] 04/12/23 for varicose veins of RLE with inflammation. He is s/p right GSV vanaseal 03/30/23. He denies any shortness of breath. He continues to take furosemide 40mg daily. Pt has complaints of L shoulder pain today. Pain started about 2 weeks ago. He denies any specific moments when he had injured it. 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 Leroy Power, Caren Loyola, Darien Blue and colleagues, with an educational kyle from [employer]. ACT Questionnaire In the past 4 weeks, how much of the time did your asthma keep you from getting as much done at work, school or at home?: None of the time During the past 4 weeks, how often have you had shortness of breath?: 1-2 times a week During the past 4 weeks, how often did your asthma symptoms wake you up at night or earlier than usual in the morning?: Not at all During the past 4 weeks, how often have you had to use your rescue inhaler or nebulizer medication?: 2-3 times a week How would you rate your asthma control during the past 4 weeks?: Well controlled Score: 21 Review of Systems Musc Details: L shoulder pain Physical exam (Primary Care) Vital Signs: Last Vital Signs Temp 97.8 F 04/18/23 08:48 Pulse 92 04/18/23 08:48 Resp 12 04/18/23 08:48 BP 140/70 H 04/18/23 08:48 Pulse Ox 96 04/18/23 08:48 Oxygen Delivery Method Room Air 04/18/23 08:48 BMI result Body Mass Index 30.1 Tobacco/Smoking Status: Tobacco use Status Tobacco use date assessed 08/31/22 04/18/23 08:54 Patient Tobacco Use Status Current everyday Tobacco 04/18/23 08:54 e-Cigarette/Vaping Use Never Used 04/18/23 08:54 Thrive Assessment: Date of Thrive Assessment Date Thrive assessed 08/31/22 04/18/23 08:54 Assessment and Plan Assessment & Plan (1) Lower extremity edema: Code(s): R60.0 - Localized edema Plan: Lower extremity edema secondary to venous insufficiency. Had check BNP at prior visit and negative for CHF. Had increased his Lasix with good affect. He is also now followed by Dr. Mendiola, vascular surgery and undergoing vein treatments for varicose veins. He is wearing compression stockings and elevating his feet as recommended. May be able to reduce Lasix from 40 mg daily to 20 mg daily. Checking BMP today and renal function. He will try reducing Lasix to 20 mg daily and watch for any worsening of lower extremity edema. Provided renal function is tolerating, he can increase back to 40 mg daily if needed. (2) Varicose veins of right lower extremity with inflammation: Comment: 03/30/2023 - right great saphenous vein Cyanoacralate ablation Code(s): I83.11 - Varicose veins of right lower extremity with inflammation Plan: Improving with treatments by vascular surgery Follow-up with vascular surgery as recommended (3) Left shoulder pain: Code(s): M25.512 - Pain in left shoulder Plan: Left shoulder pain and weakness with weakness beyond 90 degrees abduction and pain with internal rotation. No known trauma or injury. Likely significant rotator cuff strain or partial tear. Start physical therapy. Patient would like to be referred to orthopedic surgery so I will make that referral as well. He can cancel this if physical therapy is bringing about significant improvements. Orders: Orders PT Evaluation and Treatment Today M25.512 - Pain in left shoulder Basic Metabolic Panel Today R60.0 - Localized edema, Z00.00 - Encounter for general adult medical examination without abnormal findings Referrals Orthopedics Referral M25.512 - Pain in left shoulder Medications: Changed From furosemide 40 mg (2 x 20 mg) PO DAILY 90 days 180 tabs 0RF M79.89 - Other specified soft tissue disorders To furosemide 20 mg PO DAILY 90 tabs 0RF 90 days M79.89 - Other specified soft tissue disorders Refilled diclofenac sodium 50 mg PO TID PRN 90 tabs 1RF pain 30 days Coding Level of Care Code Est Pt Level 4 (24235) Diagnoses Lower extremity edema R60.0 Varicose veins of right lower extremity with inflammation I83.11 Left shoulder pain M25.512
== END 2023-04-18 10:14 | disposition home or self-care (01) ==
PROVIDERS: PCP Family Medicine; Visit Provider Family Medicine
DX: R60.0 Localized edema (principal); I83.11 Varicose veins of right lower extremity with inflammation; M25.512 Pain in left shoulder
CPT/HCPCS: 99214

== ENCOUNTER 2023-04-18 10:07 | Outpatient (REF) | payer OTHER, SELFPAY ==
[2023-04-18 12:39] LABS: Anion Gap 14 (12-20); Blood Urea Nitrogen 9 mg/dL (9-16); Calcium 9.6 mg/dL (8.4-10.2); Carbon Dioxide 31 mmol/L (22-29); Chloride 101 mmol/L (96-108); Estimated Glomerular Filt Rate > 60; Glucose Random 115 mg/dL (60-115); Potassium 3.6 mmol/L (3.3-5.1); Sodium 142 mmol/L (135-145)
== END 2023-04-18 10:08 | disposition home or self-care (01) ==
LOC: HO.WFDLDS 10:07
PROVIDERS: Visit Provider Family Medicine
DX: Z00.00 Encounter for general adult medical examination without abnormal findings (principal); R60.0 Localized edema
CPT/HCPCS: 36415; 80048

== ENCOUNTER 2023-05-25 08:57 | Outpatient (AMB) | payer OTHER, SELFPAY ==
--- NOTE | 2023-05-25 09:00 | A.OFFVIS_ITS ---
Intake Vital Signs 05/25/23 09:02 Height 6 ft 2 in Weight 234 lb BMI 30.0 Intake Visit Reasons: New Prob- Pain in left shoulder Intake Note: Goran is a 62 year old right hand dominant male who presents today for a evaluation of his left shoulder pain. Patient reports off and on pain for a couple weeks. He states when arm is relaxed he feels a tingling sensation which goes down to his hand. ROM is limited due to causing him pain per patient. Allergies Penicillins [PENICILLINS] Allergy (Unknown, Verified 05/25/23 09:01) UNKNOWN HPI New Prob- Pain in left shoulder HPI Details 62-year-old right hand dominant male who presents in the office today for an evaluation of left shoulder pain. The patient reports intermittent pain for a couple of weeks. He claims when the left upper extremity is relaxed he gets a tingling sensation when radiates to his hand. He states his ROM is limited due to pain. He started physical therapy on Sunday05/21/2023. Patient has a history of left shoulder surgery in 1976. He reports pain and limited ROM in the right ankle. He confirms a prior surgery. He confirms prior dislocations of the ankle. 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 Abduction to 45 degrees. Able to reach back pocket. Pain with cross-body reach. Unable to access drop arm or empty can due to ROM restrictions. Assessment & Plan Assessment & Plan (1) Arthritis of left glenohumeral joint: Code(s): M19.012 - Primary osteoarthritis, left shoulder Plan Mr. Hoskins is a 62-year-old right hand dominant male who presents in the office today for an evaluation of left shoulder pain. The patient reports intermittent pain for a couple of weeks. He claims when the left upper extremity is relaxed he gets a tingling sensation when radiates to his hand. He states his ROM is limited due to pain. He started physical therapy on Sunday05/21/2023. Patient has a history of left shoulder surgery in 1976. He reports pain and limited ROM in the right ankle. He confirms a prior surgery. I discussed the role of conservative and surgical treatment. He would like to refrain from having surgery at this time. I offered the patient a cortisone injection under ultrasound guidance at the hospital. He would like to move forward with this at this time. He will also continue to work with physical therapy. I will place a referral to [facility] for further evaluation of the right ankle pain and edema. Endorses multiple ankle dislocations when he was younger playing sports. Follow up will be in 8 weeks, or sooner if needed. X-rays of the left shoulder obtained while in the office today and reviewed by me, Izabel Guy PA-C, revealed glenohumeral joint arthritis. Intact retained orthopedic hardware. Orders: Orders FL arthrogram shoulder LT Today M25.512 - Pain in left shoulder XR shoulder LT min 2V Today M25.519 - Pain in unspecified shoulder Patient Instructions: Scribed for Izabel Guy PA-C by Antoinette Mcneill biomedical photographer, on 05/25/2023 at 8:59 am, EST. Coding Level of Care Code Est Pt Level 4 (28601) Diagnoses Arthritis of left glenohumeral joint M19.012
== END 2023-05-25 10:26 | disposition home or self-care (01) ==
PROVIDERS: PCP Family Medicine; Visit Provider Physician Assistant
DX: M19.012 Primary osteoarthritis, left shoulder (principal)
CPT/HCPCS: 99214

== ENCOUNTER 2023-05-25 15:55 | Outpatient (REF) | payer OTHER, SELFPAY ==
--- NOTE | ~2023-05-25 | XR_ITS ---
EXAMINATION: XR SHOULDER, LEFT CLINICAL INFORMATION: Left Shoulder pain COMPARISON: None available TECHNIQUE: AP external rotation, Grashey, scapular Y, and axillary views of the left shoulder. FINDINGS: BONES: Bony structures are intact. Sharp osteophytes are seen in inferior left humeral head and glenoid fossa. Anchoring screw is seen in the left glenoid fossa. There is no focal bone destruction or periosteal reaction seen. JOINTS: Alignment of joints is normal. There is marked decrease in left glenohumeral joint space. SOFT TISSUE: Soft tissue is normal. No radiopaque foreign body or abnormal air collection is seen. XR/XR shoulder LT min 2V IMPRESSION: 1. Advanced osteoarthritis of left glenohumeral joint. 2. Anchoring screw is seen in the left glenoid fossa. 3. No fracture or dislocation or signs of osteomyelitis are found. Some fractures could be difficult to visualize on plain x-rays, especially in the osteopenic and relatively old patients. If there are significant clinical suspicion or symptoms of fracture, further evaluation with CT or MRI scan should be considered.
== END 2023-05-25 15:56 | disposition home or self-care (01) ==
LOC: HO.HOSX 15:55
PROVIDERS: Visit Provider Physician Assistant
DX: M19.012 Primary osteoarthritis, left shoulder (principal)
CPT/HCPCS: 73030; 99212

== ENCOUNTER 2023-06-20 10:44 | Outpatient (REF) | payer OTHER, SELFPAY ==
--- NOTE | ~2023-06-20 | FL_ITS ---
Left shoulder steroid injection Indications: Left shoulder pain. Orthopedics request intra-articular steroid injection. Procedure: Risks and benefits and possible complications were discussed with the patient and the consent form was signed. The patient was placed supine on the fluoroscopy table. The left shoulder was prepped and draped in normal sterile fashion. 1% buffered lidocaine was used for anesthesia. A 22-gauge spinal needle was used to access the left shoulder joint. Intra-articular position of the needle within the hip joint was verified using 3 cc of Omnipaque 300. A total of 80 mg of Depo-Medrol and 5 mL of 1% lidocaine was administered into the left shoulder joint. The needle was then removed and a Band-Aid was applied to the injection site. The patient tolerated the procedure well. There were no immediate complications. FL/FL arthrogram shoulder LT Impression: Fluoroscopic left shoulder steroid injection The procedure was performed by Mayank Arevalo PA-C, and directly supervised by Dr. Avila.
== END 2023-06-20 10:45 | disposition home or self-care (01) ==
LOC: HO.XRAY 10:44
PROVIDERS: PCP Family Medicine; Visit Provider Physician Assistant
DX: M25.512 Pain in left shoulder (principal)
CPT/HCPCS: 23350; 73040

== ENCOUNTER → 2023-06-20 10:45 | Outpatient (BNV) | payer OTHER, SELFPAY | PROVIDERS: PCP Family Medicine; Visit Provider Student in an Organized Health Care Education/Training Program | DX: M25.512 Pain in left shoulder (principal) | CPT/HCPCS: 20610; 77002 ==

== ENCOUNTER 2023-06-22 09:00 | Outpatient (RCR) | payer OTHER, SELFPAY ==
[2023-05-23 12:00] VITALS: BP 136/72; PULSE 85
--- NOTE | 2023-05-23 12:47 | MHC.PT.EP ---
[facility] [place] Office [place] Office [place] Office [address] [phone] F: [phone] F: [phone] F: [phone] F: [phone] Physical Therapy Plan of Care Date of Evaluation: 05/23/23 Date of Surgery: Diagnosis: L shoulder pain Assessment: 62 y/o RHD male referred to PT with L shoulder pain. Of note, he has PMH significant for L shoulder surgery (3 screws for ?instability) and ND in 1989 with stend. S/s consistent with L shoulder impingement (?RTC tear) resulting in pain and difficulty with decreased L shoulder A/PROM, decreased L shoulder strength, pain, noted supraspinatus atrophy, and impaired postural awareness. Recommend PT 2x/week for 5 weeks to address impairments, implement HEP, and optimize functional mobiltiy Frequency and Duration: The patient will be seen 2x/week for 5 weeks Short Term Goals: 3 weeks Compliant with HEP Improve L shoulder flexion to 120* with pain < 3/10 Intermediate Goals: 5 weeks I with HEP and self management of sx Pt will be able to dress upper body with pain < 3/10 Pt will be able to reach into overhead cabinet with pain < 3/10 Treatment Plan: Modalities to reduce pain, spasms and effusion. Manual therapy to restore motion and function. Therapeutic exercise to improve strength and flexibility. Neuromuscular re-education for posture and balance. Therapeutic activities to return to functional activities of daily living. Electronically signed by: Gisela Saba PT Please sign and return to therapist. Thank you for your referral.
--- NOTE | 2023-08-10 10:43 | MHC.PT.DC ---
[facility] [place] Office [place] Office [place] Office [address] Lesia Urbina [address] [phone] F: [phone] F: [phone] F: [phone] F: [phone] Physical Therapy Discharge Report Diagnosis: L shoulder pain Date of Surgery: Date of Evaluation: 05/23/23 Date of Discharge: 08/10/23 Treatments to Date: 5 Cancellations to Date: 6 No Shows to Date: 1 Discharge Status: Independent with HEP Visit Non-compliance Discharge Summary: Pt was making gradual progress towards goals and had less pain following cortisone injection. However pt did not f/u through with further visits and is now d/c. Electronically signed by: Gisela Saba PT Please sign and return to therapist. Thank you for your referral.
== END 2023-08-10 10:43 | disposition home or self-care (01) ==
LOC: HO.PT 09:00
PROVIDERS: PCP Family Medicine; Visit Provider Family Medicine
DX: M25.512 Pain in left shoulder (principal)
CPT/HCPCS: 97110; 97162

== ENCOUNTER 2023-06-27 11:12 | Emergency (ER) | payer OTHER, SELFPAY | END 2023-06-27 12:00 | disposition left against medical advice (07) | PROVIDERS: Emergency Provider Emergency Medicine; PCP Family Medicine | DX: I10 Essential (primary) hypertension (principal) ==

== ENCOUNTER 2024-06-18 10:45 | Outpatient (AMB) | payer OTHER, SELFPAY ==
--- NOTE | 2024-06-18 10:48 | A.OFFPC_ITS ---
Vital Signs 06/18/24 10:53 Height 6 ft 2 in Weight 223 lb 2 oz BMI 28.6 BP 112/60 Blood Pressure Location Rt brachial Position Sitting Respiration 16 Pulse 72 Pulse Source Pulse Oximeter Temp 98.2 F Temp Source Oral Pulse Oximetry (%) 95 Oxygen Delivery Method Room Air Intake Visit Reasons: Medications follow up checkup Intake Note: left limited range of motion with pain Allergies Penicillins [PENICILLINS] Allergy (Unknown, Verified 06/18/24 10:52) UNKNOWN Medication List - Last Reconciled 06/18/24 by Abhishek Ortiz MD albuterol sulfate 90 mcg/actuation (ProAir HFA) 2 puffs inhalation Q6H PRN 30 days albuterol sulfate 90 mcg/actuation (Ventolin HFA) 2 puffs inhalation Q4-6H PRN 30 days atorvastatin 80 mg PO BEDTIME 90 days diclofenac sodium 1% (Voltaren Arthritis Pain) 2 grams topical QID diclofenac sodium 50 mg PO TID PRN 30 days furosemide 20 mg PO DAILY 90 days Tobacco use date assessed: 08/31/22 Dental Screening Dental Screen Date: 04/18/23 HPI Medications follow up checkup HPI Details 63 y/o male [facility]. Hx of CAD, ME. Reports ongoing L shoulder pain, knee pain. Has been using diclofenac for relief. Hx of elevated fasting glucose. A1c today 06/18/24 is 6.0%. 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 1. Little interest or pleasure in doing things: several days 2. Feeling down, depressed, or hopeless: not at all 3. Trouble falling or staying asleep, or sleeping too much: several days 4. Feeling tired or having little energy: several days 5. Poor appetite or overeating: not at all 6. Feeling bad about yourself - or that you are a failure or have let yourself or your family down: not at all 7. Trouble concentrating on things, such as reading the newspaper or watching television: not at all 8. Moving or speaking so slowly that other people could have noticed. Or the opposite - being so fidgety or restless that you have been moving around a lot more than usual: not at all 9. Thoughts that you would be better off or of hurting yourself in some way: not at all Total score: 3 Source: Developed by Drs. Leroy Power, Caren Loyola, Darien Blue and colleagues, with an educational kyle from [employer]. Thrive Questionnaire Date Thrive assessed: 08/31/22 I am a: Patient What is your living situation today?: I have a steady place to live Within the past 12 months, did the food you bought not last and you didn't have the money to get more?: Often true Within the past 12 months, did you worry whether your food would run out before you got money to buy more?: Never true Do you have trouble paying for medicines?: No Do you have trouble getting transportation to medical appointments?: No Do you have trouble paying your heating and electricity bill?: No Do you have trouble taking care of your child, family member or friend?: No Do you have trouble with day-to-day activities such as bathing, preparing meals, shopping, managing finances, etc.?: No Are you currently unemployed and looking for a job?: No Are you interested in more education?: No Please select the resources that you would like help with: None Currently or been in a relationship where the following occur: I choose not to answer THRIVE Score: 1 AUDIT C Alcohol Use Questionnaire (AUDIT-C) 1. How often do you have a drink containing alcohol?: 2-4 times a month 2. How many drinks containing alcohol do you have on a typical day when you are drinking?: 1 or 2 3. How often do you have six or more drinks on one occasion?: Never Total Score: 2 SHADY-7 AMB Questionnaire SHADY-7 Date SHADY - 7 assessed: 08/31/22 Feeling nervous, anxious, or on edge: 0 = Not at all Not being able to stop or control worryin = Not at all Worrying too much about different things: 0 = Not at all Trouble relaxin = Not at all Being so restless that it is hard to sit still: 0 = Not at all Becoming easily annoyed or irritable: 0 = Not at all Feeling afraid as if something awful might happen: 0 = Not at all Total SHADY-7 score (0-4 normal; 5-9 mild; 10-14 moderate; 15-21 severe): 0 Source: Developed by Drs. Leroy Power, Caren Loyola, Darien Blue and colleagues, with an educational kyle from [employer]. Review of Systems Const Denies chills, Denies fatigue, Denies fever(s), Denies headache(s) and Denies weakness ENT Denies dizziness and Denies headache(s) Card Denies chest pain, Denies lightheadedness, Denies dyspnea and Denies other (Palpitations) Resp Denies cough, Denies dyspnea, Denies wheezing and Denies other ( shortness of breath) Musc Denies numbness and Denies tingling Neuro Denies dizziness, Denies headache(s), Denies numbness, Denies tingling, Denies paresthesias and Denies weakness Psych Denies anxiety and Denies depression Endo Denies fatigue Aller/Immun Denies wheezing Physical exam (Primary Care) Vital Signs: Last Vital Signs Temp 98.2 F 06/18/24 10:53 Pulse 72 06/18/24 10:53 Resp 16 06/18/24 10:53 BP 112/60 06/18/24 10:53 Pulse Ox 95 06/18/24 10:53 Oxygen Delivery Method Room Air 06/18/24 10:53 BMI result Body Mass Index 28.6 Tobacco/Smoking Status: Tobacco use Status Tobacco use date assessed 08/31/22 06/18/24 10:49 Patient Tobacco Use Status Current everyday Tobacco 06/18/24 10:49 e-Cigarette/Vaping Use Never Used 06/18/24 10:49 PHQ-9: PHQ-9 Score PHQ-9: Total score 3 06/18/24 10:49 Thrive Assessment: Date of Thrive Assessment Date Thrive assessed 08/31/22 06/18/24 10:49 Currently or been in a relationship where the following occur: I choose not to answer Const General: no acute distress and well developed Nutritional Appearance: well nourished Orientation/consciousness: patient oriented x3 [facility] Head: Yes normocephalic and Yes atraumatic Eyes General: appearance normal, both eyes and all related structures Pupils: Equal, round and reactive pupils present EOM: EOMs intact bilaterally Resp Effort & Inspection: normal respiratory effort Auscultation: clear to auscultation bilaterally Cardio Rate: regular rate Rhythm: regular rhythm Heart sounds: S1 normal heart sound present, S2 normal heart sound present, no gallops, no murmurs and no rubs Neuro General: patient oriented x3 and gait normal Cranial nerves: Yes Equal, round and reactive pupils present Psych Affect: normal affect Coding Level of Care Code Est Pt Level 3 (15357) Diagnoses Arthritis of left glenohumeral joint M19.012 Bilateral knee pain M25.561; M25.562 Elevated fasting glucose R73.01 Pre-diabetes R73.03 Assessment & Plan Assessment & Plan (1) Arthritis of left glenohumeral joint: Code(s): M19.012 - Primary osteoarthritis, left shoulder Category: Medical Plan: History?of?left?shoulder?surgery?in?1976 X-ray?last?year?shows?arthritis?at?left?glenohumeral?joint?and?patient?has?worse kana?pain?and?decreasing?range? of?motion.??Essentially?frozen?shoulder?at?this?point. Referred?to?Ortho (2) Bilateral knee pain: Code(s): M25.561 - Pain in right knee; M25.562 - Pain in left knee Category: Medical Plan: Bilateral?knee?osteoarthritis?and?pain Patient?has?receive d?injection?therapy?in?the?past?and?would?like?referral?back?to?ortho?to?conside r?it?this?again.??Referred. Continue NSAIDs;?will?have?him?trial?meloxicam. Advised?patient?not?to?take?with?other?NSAIDs?such?as?diclofenac. Ice/heat He?is?using?bilateral?knee?braces (3) Elevated fasting glucose: Code(s): R73.01 - Impaired fasting glucose Category: Medical Plan: A1C?6.0%-SEE?BELOW (4) Pre-diabetes: Code(s): R73.03 - Prediabetes Category: Medical Plan: A1c?6.0%.??Pre?diabetes?range. Encouraged?a?diet?lower?in?sugars?and?starches Encouraged?weight?loss Will?continue?to?monitor Orders: Orders Comprehensive Page. Panel Fast Today Z00.00 - Encounter for general adult medical examination without abnormal findings Lipid Panel Today Z00.00 - Encounter for general adult medical examination without abnormal findings Complete Blood Count Auto Diff Today Z00.00 - Encounter for general adult medical examination without abnormal findings Microalbumin, Random (w Creat) Today I10 - Essential (primary) hypertension Prostate Specific Antigen Scr Today Z12.5 - Encounter for screening for malignant neoplasm of prostate TSH reflex Free T4 Today Z00.00 - Encounter for general adult medical examination without abnormal findings UA and rflx microscopic Today Z00.00 - Encounter for general adult medical examination without abnormal findings Referrals Orthopedics Referral M17.11 - Unilateral primary osteoarthritis, right knee, M17.12 - Unilateral primary osteoarthritis, left knee, M25.512 - Pain in left shoulder Medications: New meloxicam 15 mg PO DAILY 30 days 30 tabs 2RF
[2024-06-18 10:53] VITALS: BP 112/60; PULSE 72; RESP 16; TEMP 36.8; O2SAT 95; BMI 28.6
== END 2024-06-18 11:50 | disposition home or self-care (01) ==
PROVIDERS: PCP Family Medicine; Visit Provider Family Medicine
DX: M19.012 Primary osteoarthritis, left shoulder (principal); M25.561 Pain in right knee; M25.562 Pain in left knee; R73.01 Impaired fasting glucose; R73.03 Prediabetes

== ENCOUNTER → 2024-06-18 10:45 | Outpatient (BNVA) | payer OTHER, SELFPAY | PROVIDERS: PCP Family Medicine; Visit Provider Family Medicine | DX: M19.012 Primary osteoarthritis, left shoulder (principal); M25.561 Pain in right knee; M25.562 Pain in left knee; R73.01 Impaired fasting glucose; R73.03 Prediabetes | CPT/HCPCS: 99212 ==

== ENCOUNTER 2024-07-29 09:32 | Outpatient (REF) | payer MEDICARE, SELFPAY | END 2024-07-29 09:33 | disposition home or self-care (01) | LOC: HO.HOSX 09:32 | PROVIDERS: PCP Family Medicine; Visit Provider Physician Assistant | DX: M19.012 Primary osteoarthritis, left shoulder (principal); M25.562 Pain in left knee | CPT/HCPCS: 73030; 99212 ==

== ENCOUNTER 2024-07-29 09:32 | Outpatient (AMB) | payer MEDICARE, SELFPAY ==
--- NOTE | 2024-07-29 09:54 | A.OFFVIS_ITS ---
Intake Visit Reasons: OV - Left shoulder pain Intake Note: Goran is a 64 year old right hand dominant male who presents today for a follow up of his left shoulder pain. No hx of injury. Hx of surgery since 1977. Patient reports his ROM is limited. His pain is worse when he is moving it and laying on the left side. Allergies Penicillins [PENICILLINS] Allergy (Unknown, Verified 06/18/24 10:52) UNKNOWN HPI HPI OV - Left shoulder pain: Details: 64-year-old [id number] male who presents in the office today for a follow-up of left shoulder pain. I last saw the patient in the office on 05/25/24, when we discussed both conservative as well as surgical treatment. The patient deferred surgical treatment at that time. He expressed to move forward with the cortisone injection in the left shoulder under ultrasound guidance and an order was placed to the hospital at that time. A referral to [facility] foot [facility] ankle was also placed for further evaluation of the right ankle pain and edema. While in the office today, the patient reports ongoing left shoulder pain and limited range of motion. He mentions aggravating pain with movement and lying on the left side. 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 External rotation to neutral. Unable to perform any external rotation and special test due to range of motion restrictions and pain. Assessment & Plan Assessment & Plan (1) Arthritis of left glenohumeral joint: Code(s): M19.012 - Primary osteoarthritis, left shoulder Category: Medical Plan Mr. Hoskins is a 64-year-old [id number] male who presents in the office today for a follow-up of left shoulder pain. I last saw the patient in the office on 05/25/24, when we discussed both conservative as well as surgical treatment. The patient deferred surgical treatment at that time. He expressed to move forward with the cortisone injection in the left shoulder under ultrasound guidance and an order was placed to the hospital at that time. Unfortunately, he cannot recall receiving the injection and is unsure if it was helpful. There are fluro images available in pac's. Of note he also has a prior surgical history of left shoulder surgery where the patient reports he has a hardware in the shoulder. He reports this was many years ago . While in the office today, the patient reports ongoing left shoulder pain and s everely limited range of motion. He mentions aggravating pain with movement and lying on the left side. 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 I have ordered a CT scan of the left shoulder to further evaluate the integrity of the left shoulder and surrounding structures. Follow-up will be in [address] Kendrick, or sooner if needed. X-rays of the left shoulder, which were obtained while in the office today and were reviewed by me, Izabel Guy PA-C, revealed: Glenohumeral joint arthritis with orthopedic hardware intact. Orders: Orders XR knee LT 3V Today M25.569 - Pain in unspecified knee XR shoulder LT min 2V Today M25.519 - Pain in unspecified shoulder XR shoulder LT min 2V Today M25.519 - Pain in unspecified shoulder CT shoulder LT wo IV con Today M19.019 - Primary osteoarthritis, unspecified shoulder Patient Instructions: Scribed by Ginny Valle, certified medical technician, for Izabel Guy PA-C on 07/29/24 at 10:20 am EST. Coding Level of Care Code Est Pt Level 4 (84563) Diagnoses Arthritis of left glenohumeral joint M19.012
== END 2024-07-29 10:06 | disposition home or self-care (01) ==
PROVIDERS: PCP Family Medicine; Visit Provider Physician Assistant
DX: M19.012 Primary osteoarthritis, left shoulder (principal)
CPT/HCPCS: 99214

== ENCOUNTER 2024-07-31 08:51 | Outpatient (REF) | payer MEDICARE, SELFPAY | END 2024-07-31 08:52 | disposition home or self-care (01) | LOC: HO.HOSX 08:51 | PROVIDERS: Visit Provider Physician Assistant | DX: Z13.89 Encounter for screening for other disorder (principal) ==

== ENCOUNTER 2025-04-17 08:33 | Outpatient (REF) | payer MEDICARE, SELFPAY ==
--- NOTE | ~2025-04-17 | XR_ITS ---
CLINICAL HISTORY: M25.569 - Pain in unspecified knee AP standing view of bilateral knees, two views of the left knee Comparison: CR/KS/SR - XR KNEE 3 VIEWS LEFT - 09/21/22 06:36 EST Findings: Examination is limited by positioning factors. No fractures or dislocations. Tricompartmental periarticular osteophyte formation, indicating osteoarthritis. No joint effusion. No radiopaque foreign body. IMPRESSION: 1. No acute findings. This document has been electronically signed by: Royce Servin MD on 04/17/2025 15:23:12
--- NOTE | ~2025-04-17 | XR_ITS ---
CLINICAL HISTORY: M25.569 - Pain in unspecified knee 2 view right knee Comparison: None provided Findings: Examination is limited by positioning factors. No definite fractures or dislocations. Tricompartmental periarticular osteophyte formation, indicating osteoarthritis. No joint effusion. No radiopaque foreign body. IMPRESSION: 1. No acute findings. This document has been electronically signed by: Royce Servin MD on 04/17/2025 15:22:22
== END 2025-04-17 08:34 | disposition home or self-care (01) ==
LOC: HO.HOSX 08:33
PROVIDERS: Visit Provider Physician Assistant
DX: M17.0 Bilateral primary osteoarthritis of knee (principal)
CPT/HCPCS: 20610; 73562; 99212; J0665; J1100; J2003

== ENCOUNTER 2025-04-17 09:22 | Outpatient (AMB) | payer MEDICARE, SELFPAY ==
--- NOTE | 2025-04-17 09:37 | MHC.OFFVIS ---
Vital Signs 04/17/25 09:44 Height 6 ft 2 in Weight 180 lb BMI 23.1 Intake Visit Reasons: New prob-Bilat knee pain Intake Note: Goran is a 64 year old male who presents today for a evaluation of his bilateral knee pain. History of left knee OA. left knee injection on 10/05/22. Patient states that his injection lasted him a while but he held off, he would like both of his knee injected. He states that his left knee is worse than the right. Allergies Penicillins (PENICILLINS) Allergy (Unknown, Verified 04/17/25 09:42) UNKNOWN HPI HPI New prob-Bilat knee pain: Details: Mr. Hoskins is a 64-year-old male who presents to the office today for bilateral knee pain. Patient understands that he has bilateral knee osteoarthritis. He is looking for cortisone injection today. He did receive a cortisone injection in the left knee on 11/17/2022 which gave him some relief. Patient also reports recently that he takes meloxicam at baseline to help with inflammation and pain. He reports that his PCP gave him this medication for restless leg syndrome. He was unable to obtain his prescription for quite some time and therefore his knee pain began to worsen. 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 No ecchymosis, erythema, or joint effusion. Tenderness to palpation along the medial and lateral joint lines. Full knee extension and flexion with crepitus. NVI. Psych Appearance: grossly normal Mental Status: mental status grossly normal Attitude: cooperative Office Procedures AMB Joint Injection/Aspiration Joint Injection/Aspiration Primary Site: right knee Secondary Site: left knee Prep: site was prepped using aseptic technique, ethochloride spray was applied and injection warnings given Injected: 40 mg of, with 3 mL of, 0.25% bupivacaine, decadron and other (3 mL of 2% plain lidocaine) Approach Used: anterolateral Procedure: The patient tolerated the procedure well, but had some pain with the injection and there was some relief with the local anesthesia Coding 35660 - Bilateral Large Joint Procedure code (CPT) selection complete Assessment & Plan Assessment & Plan (1) Osteoarthritis of left knee: Code(s): M17.12 - Unilateral primary osteoarthritis, left knee Category: Medical (2) Osteoarthritis of right knee: Code(s): M17.11 - Unilateral primary osteoarthritis, right knee Category: Medical Plan The patient was offered a cortisone injection in bilateral knees. The patient was explained the risks, benefits, and alternatives to receiving this injection. After receiving consent for the injection, the patient had the procedure done while in the office today. The patient tolerated the procedure well with no complications. Follow-up will be PRN, or sooner if needed. X-rays of bilateral knees which were obtained while in the office today and were reviewed by me, Izabel Guy PA-C, revealed osteoarthritis. Orders: Orders XR knee LT 3V Today M25.569 - Pain in unspecified knee XR knee RT 3V Today M25.569 - Pain in unspecified knee Coding Level of Care Code Est Pt Level 3 (51649) Diagnoses Osteoarthritis of left knee M17.12 Osteoarthritis of right knee M17.11 CPT Codes Coding - 44681 - Bilateral Large Joint: 64537 - Bilateral Large Joint ([id number])
[2025-04-17 09:44] VITALS: BMI 23.1
== END 2025-04-17 10:06 | disposition home or self-care (01) ==
LOC: HO.HOS 09:23
PROVIDERS: PCP Family Medicine; Visit Provider Physician Assistant
DX: M17.0 Bilateral primary osteoarthritis of knee (principal)
CPT/HCPCS: 20610; 99213

== ENCOUNTER → 2025-04-17 09:27 | Outpatient (BNV) | payer MEDICARE, SELFPAY | PROVIDERS: Visit Provider Radiology Diagnostic Radiology | DX: M17.0 Bilateral primary osteoarthritis of knee (principal) | CPT/HCPCS: 73562 ==

== ENCOUNTER 2025-04-30 12:21 | Outpatient (AMB) | payer MEDICARE, SELFPAY ==
--- NOTE | 2025-04-30 12:25 | MHC.PC.OV ---
Vital Signs 04/30/25 12:37 Height 6 ft 2 in Weight 198 lb 4 oz BMI 25.5 BP 141/87 H Blood Pressure Location Lt brachial Position Sitting Respiration 16 Pulse 67 Pulse Source Pulse Oximeter Temp 98.3 F Temp Source Oral Pulse Oximetry (%) 99 Oxygen Delivery Method Room Air Intake Visit Reasons: CPE?with?follow-up?health?maintenance?and?labs Intake Note: patient here for CPE with follow up health maintenance and labs Top Lift Nailer Required: No Allergies Penicillins (PENICILLINS) Allergy (Unknown, Verified 04/30/25 12:36) UNKNOWN Medication List - Last Reconciled 04/30/25 by Abhishek Ortiz MD albuterol sulfate 90 mcg/actuation (ProAir HFA) 2 puffs inhalation Q6H PRN 30 days albuterol sulfate 90 mcg/actuation (Ventolin HFA) 2 puffs inhalation Q4-6H PRN 30 days atorvastatin 80 mg PO BEDTIME 90 days diclofenac sodium 50 mg PO TID PRN 30 days diclofenac sodium 1% (Voltaren Arthritis Pain) 2 grams topical QID furosemide 20 mg PO DAILY 90 days meloxicam 15 mg PO DAILY 30 days Tobacco use date assessed: 04/30/25 Fall risk assessment: 2 + Falls in past year Last assessed Fall Risk: 04/30/25 Dental Screening Dental Screen Date: 04/30/25 Did you have a dental visit in the last 12 months?: No Did you have a dental problem in the last 6 months where you did not have access to dental care?: No Was dental information given to patient?: No HPI CPE?with?follow-up?health?maintenance?and?labs HPI Details After a long hiatus, patient returns for CPE. Left shoulder pain and limited mobility. History of shoulder surgery. He would like a referral back to ortho Bilateral knee pain and followed by Ortho for this already. Has had injection therapy. Bilateral feet pain. Using meloxicam. He notes that he has been taking 30 mg of meloxicam daily for the past 2 weeks. This is twice the recommended dose. Advised him to take only the recommended dose. Informs me that at prior visits he had always been on illicit opioids. Particularly fentanyl. He notes that he wean himself off ?cold turkey a month ago. Will avoid opiates. 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 1. Little interest or pleasure in doing things: nearly every day 2. Feeling down, depressed, or hopeless: several days 3. Trouble falling or staying asleep, or sleeping too much: nearly every day 4. Feeling tired or having little energy: nearly every day 5. Poor appetite or overeating: not at all 6. Feeling bad about yourself - or that you are a failure or have let yourself or your family down: not at all 7. Trouble concentrating on things, such as reading the newspaper or watching television: not at all 8. Moving or speaking so slowly that other people could have noticed. Or the opposite - being so fidgety or restless that you have been moving around a lot more than usual: not at all 9. Thoughts that you would be better off or of hurting yourself in some way: not at all Total score: 10 Depression Screening Interpretation: Positive Depression Screening Done: Yes 85895 - PHQ-9 Billing: Yes Source: Developed by Drs. Leroy Power, Caren Loyola, Darien Blue and colleagues, with an educational kyle from [employer]. Thrive Questionnaire Date Thrive assessed: 04/30/25 I am a: Patient What is your living situation today?: I have a steady place to live Within the past 12 months, did the food you bought not last and you didn't have the money to get more?: Never true Within the past 12 months, did you worry whether your food would run out before you got money to buy more?: Never true Do you have trouble paying for medicines?: No Do you have trouble getting transportation to medical appointments?: Yes Do you have trouble paying your heating and electricity bill?: No Do you have trouble taking care of your child, family member or friend?: I choose not to answer this question Do you have trouble with day-to-day activities such as bathing, preparing meals, shopping, managing finances, etc.?: Yes Are you currently unemployed and looking for a job?: No Are you interested in more education?: No Please select the resources that you would like help with: Housing/Detention and Transportation Currently or been in a relationship where the following occur: I choose not to answer THRIVE Score: 1 AUDIT C Alcohol Use Questionnaire (AUDIT-C) 1. How often do you have a drink containing alcohol?: Monthly or less 2. How many drinks containing alcohol do you have on a typical day when you are drinking?: 1 or 2 3. How often do you have six or more drinks on one occasion?: Never Total Score: 1 Score Reviewed/Action Taken: Yes SHADY-7 AMB Questionnaire SHADY-7 Date SHADY - 7 assessed: 04/30/25 Feeling nervous, anxious, or on edge: 0 = Not at all Not being able to stop or control worryin = More than half the days Worrying too much about different things: 2 = More than half the days Trouble relaxin = Not at all Being so restless that it is hard to sit still: 0 = Not at all Becoming easily annoyed or irritable: 0 = Not at all Feeling afraid as if something awful might happen: 0 = Not at all Total SHADY-7 score (0-4 normal; 5-9 mild; 10-14 moderate; 15-21 severe): 4 Source: Developed by Drs. Leroy Power, Caren Loyola, Darien Blue and colleagues, with an educational kyle from [employer]. SHADY-7 Assessment Billing SHADY-7 Assessment Tool: SHADY-7 Assessment 17683 ACT Questionnaire In the past 4 weeks, how much of the time did your asthma keep you from getting as much done at work, school or at home?: None of the time During the past 4 weeks, how often have you had shortness of breath?: Once a day During the past 4 weeks, how often did your asthma symptoms wake you up at night or earlier than usual in the morning?: Not at all During the past 4 weeks, how often have you had to use your rescue inhaler or nebulizer medication?: 1-2 times a week How would you rate your asthma control during the past 4 weeks?: Well controlled Score: 18 Review of Systems Const Denies chills, Denies fatigue, Denies fever(s), Denies headache(s) and Denies weakness Eyes Denies change in vision ENT Denies dizziness, Denies headache(s), Denies hearing loss, Denies nasal congestion, Denies sinus pain, Denies sinus pressure and Denies sore throat Card Denies chest pain, Denies lightheadedness, Denies dyspnea and Denies other (palpitations) Resp Denies cough, Denies dyspnea and Denies wheezing GI Denies abdominal pain, Denies melena, Denies hematochezia, Denies change in bowel habits, Denies dyspepsia and Denies nausea Denies hematuria and Denies dysuria Musc Details: See HPI Denies abnormal gait, Denies myalgias, Denies arthralgias, Denies numbness and Denies tingling Skin/Breast Denies rash, Denies unusual bruising and Denies wounds Neuro Denies abnormal gait, Denies dizziness, Denies headache(s), Denies memory loss, Denies numbness, Denies Sensory deficit (Neuro), Denies tingling and Denies weakness Psych Denies anxiety, Denies depression and Denies memory loss Endo Denies cold intolerance, Denies fatigue, Denies heat intolerance, Denies polydipsia and Denies polyuria Bakari/Lymph Denies easy bleeding and Denies easy bruising Aller/Immun Denies wheezing Physical exam (Primary Care) Vital Signs: Last Vital Signs Temp 98.3 F 04/30/25 12:37 Pulse 67 04/30/25 12:37 Resp 16 04/30/25 12:37 BP 141/87 H 04/30/25 12:37 Pulse Ox 99 04/30/25 12:37 Oxygen Delivery Method Room Air 04/30/25 12:37 BMI result Body Mass Index 25.5 Tobacco/Smoking Status: Tobacco use Status Tobacco use date assessed 04/30/25 04/30/25 12:31 Patient Tobacco Use Status Current everyday Tobacco 04/30/25 12:30 e-Cigarette/Vaping Use Never Used 04/30/25 12:30 PHQ-9: PHQ-9 Score PHQ-9: Total score 10 04/30/25 12:30 Depression Screening Interpretation: Positive Thrive Assessment: Date of Thrive Assessment Date Thrive assessed 04/30/25 04/30/25 12:30 Currently or been in a relationship where the following occur: I choose not to answer Const General: no acute distress, well developed, alert and awake Nutritional Appearance: well nourished Orientation/consciousness: patient oriented x3 HENMT Head: Yes normocephalic and Yes atraumatic Ears: hearing grossly normal bilaterally and TM's normal bilaterally General nose exam: Normal external nose present and Normal nares present Mouth: Normal oral and palatal mucosa present and moist mucous membranes Teeth and gingiva: dentition normal Throat: Yes posterior oropharynx normal Eyes Pupils: Equal, round and reactive pupils present and Pupil accommodation reflex normal EOM: EOMs intact bilaterally Neck Neck: Yes normal visual inspection, Yes no lymphadenopathy and Yes trachea midline Thyroid: Thyroid normal Carotids: no bruits Lymphatic: no lymphadenopathy noted Chest Chest palpation & inspection: normal inspection of the chest Resp Effort & Inspection: normal respiratory effort Auscultation: clear to auscultation bilaterally Cardio Rate: regular rate Rhythm: regular rhythm Heart sounds: S1 normal heart sound present, S2 normal heart sound present, no gallops, no murmurs and no rubs Bruits: no abdominal aortic bruits and no carotid bruits GI Palpation (GI): No Abdominal aortic bruit present, Soft to palpation, nontender, No hepatosplenomegaly present and No Rebound tenderness present Auscultation: normal bowel sounds General: Yes no CVA tenderness Back/Spine/Pelvis Back: no CVA tenderness Cervical Spine: cervical ROM normal and No Cervical spine tenderness Thoracic/Lumbar Spine: thoraco-lumbar ROM normal, No pain with thoraco-lumbar ROM, No thoracic spinal tenderness and No lumbar spinal tenderness Skin Lesions: no lesions Rashes: no rashes Trauma: no lacerations or abrasions Wounds: no wounds Nails: normal Neuro General: patient oriented x3, gait normal and CN's II-XI intact bilaterally Cranial nerves: Yes Equal, round and reactive pupils present Cognition (Neuro): normal cognition Gait exam (Neuro): Normal gait present Motor exam (neuro): 5/5 motor strength present throughout Sensory Exam: No Sensory deficit (Neuro) Deep tendon reflexes (DTR's): Right patellar reflex intensity grade: 2+ and Left patellar reflex intensity grade: 2+ Extrem Other: Limited mobility at left shoulder General: Yes normal to inspection and No edema Psych Appearance: grossly normal Affect: normal affect Attitude: cooperative Thought process: Normal thought process present Results AMB Hemoglobin A1c AMB Hemoglobin A1c 5.9 % Last Edit by Alley Mathis CMA on 04/30/25 13:07 Coding Level of Care Code Est Pt Level 5 (79650) Diagnoses Pre-diabetes R73.03 Elevated blood pressure reading R03.0 Essential hypertension I10 Left shoulder pain M25.512 Coronary artery disease I25.10 Osteoarthritis of knees, bilateral M17.0 Bilateral foot pain M79.671; M79.672 History of opioid abuse F11.11 Screening for colon cancer Z12.11 Screening for prostate cancer Z12.5 Adult general medical exam Z00.00 Additional Codes SHADY-7 Assessment Billing - SHADY-7 Assessment Tool: SHADY-7 Assessment 75249 ([id number]) PHQ-9 - 05992 - PHQ-9 Billing: Yes ([id number]) Assessment & Plan Assessment & Plan (1) Pre-diabetes: Code(s): R73.03 - Prediabetes Category: Medical Plan: A1c 5.9%. Pre diabetes range. Keep working on a diet low in sugars and starches (2) Elevated blood pressure reading: Code(s): R03.0 - Elevated blood-pressure reading, without diagnosis of hypertension Category: Medical Plan: Start losartan (3) Essential hypertension: Code(s): I10 - Essential (primary) hypertension Category: Medical Plan: Start losartan. Blood pressure goal is less than 130/80 Watch salt in sodium (4) Left shoulder pain: Code(s): M25.512 - Pain in left shoulder Category: Medical Plan: History of left shoulder surgery. Limit of mobility and pain. He would like a referral to Ortho Referred (5) Coronary artery disease: Code(s): I25.10 - Atherosclerotic heart disease of [place] coronary artery without angina pectoris Category: Medical Plan: Continue atorvastatin Recheck lipids Control blood pressure (6) Osteoarthritis of knees, bilateral: Code(s): M17.0 - Bilateral primary osteoarthritis of knee Category: Medical Plan: Followed by Ortho Can also use meloxicam (7) Bilateral foot pain: Code(s): M79.671 - Pain in right foot; M79.672 - Pain in left foot Category: Medical Plan: Bilateral foot pain Meloxicam, Tylenol and will try some gabapentin at bedtime (8) History of opioid abuse: Code(s): F11.11 - Opioid abuse, in remission Category: Medical Plan: Remain abstinent (9) Screening for colon cancer: Code(s): Z12.11 - Encounter for screening for malignant neoplasm of colon Category: Medical Plan: Last colonoscopy around 10 years ago, per patient. [place] [facility] [place] Screening for prostate cancer: Code(s): Z12.5 - Encounter for screening for malignant neoplasm of prostate Category: Medical Plan: Check PSA (11) Adult general medical exam: Code(s): Z00.00 - Encounter for general adult medical examination without abnormal findings Category: Medical Plan: No recent EKG EKG: Normal sinus rhythm, normal axis, voltage criteria for LVH, no ST-T-wave changes. Orders: Orders AMB Hemoglobin A1c Today R73.03 - Prediabetes AMB EKG-In Office Today Z00.00 - Encounter for general adult medical examination without abnormal findings Complete Blood Count Auto Diff Today Z00.00 - Encounter for general adult medical examination without abnormal findings Prostate Specific Antigen Scr Today Z00.00 - Encounter for general adult medical examination without abnormal findings, Z12.5 - Encounter for screening for malignant neoplasm of prostate Vitamin B12 and Folate Today E53.8 - Deficiency of other specified B group vitamins, Z00.00 - Encounter for general adult medical examination without abnormal findings Comprehensive [place]. Panel Fast Today Z00.00 - Encounter for general adult medical examination without abnormal findings Lipid Panel Today Z00.00 - Encounter for general adult medical examination without abnormal findings Microalbumin, Random (w Creat) Today I10 - Essential (primary) hypertension, Z00.00 - Encounter for general adult medical examination without abnormal findings TSH reflex Free T4 Today Z00.00 - Encounter for general adult medical examination without abnormal findings UA CC w/rflx Micro + Cult Today Z00.00 - Encounter for general adult medical examination without abnormal findings Vitamin D 25-OH Total Today E55.9 - Vitamin D deficiency, unspecified, Z00.00 - Encounter for general adult medical examination without abnormal findings Referrals Gastroenterology Referral Z12.11 - Encounter for screening for malignant neoplasm of colon Orthopedics Referral M25.512 - Pain in left shoulder Medications: New gabapentin 300 mg PO BEDTIME 90 caps 2RF 90 days losartan 25 mg PO DAILY 90 tabs 3RF 90 days acetaminophen 750 mg (1.5 x 500 mg) PO Q6H PRN 180 tabs 3RF pain 30 days Z00.00 - Encounter for general adult medical examination without abnormal findings Refilled diclofenac sodium 1% (Voltaren Arthritis Pain) apply to single elbow, wrist or hand; for hand includes palm/fingers/back of hand 2 grams topical QID 100 grams 0RF meloxicam 15 mg PO DAILY 30 tabs 2RF 30 days Z00.00 - Encounter for general adult medical examination without abnormal findings
[2025-04-30 12:37] VITALS: BP 141/87; PULSE 67; RESP 16; TEMP 36.8; O2SAT 99; BMI 25.5
== END 2025-04-30 13:31 | disposition home or self-care (01) ==
LOC: HO.HMCFM 12:22
PROVIDERS: PCP Family Medicine; Visit Provider Family Medicine
DX: Z00.00 Encounter for general adult medical examination without abnormal findings (principal); M25.512 Pain in left shoulder; R03.0 Elevated blood-pressure reading, without diagnosis of hypertension; F11.11 Opioid abuse, in remission; R73.03 Prediabetes; M79.671 Pain in right foot; M79.672 Pain in left foot; I10 Essential (primary) hypertension; I25.10 Atherosclerotic heart disease of native coronary artery without angina pectoris; M17.0 Bilateral primary osteoarthritis of knee; Z12.11 Encounter for screening for malignant neoplasm of colon; Z12.5 Encounter for screening for malignant neoplasm of prostate

== ENCOUNTER → 2025-04-30 12:21 | Outpatient (BNVA) | payer MEDICARE, SELFPAY | PROVIDERS: PCP Family Medicine; Visit Provider Family Medicine | DX: Z00.00 Encounter for general adult medical examination without abnormal findings (principal); R73.03 Prediabetes; R03.0 Elevated blood-pressure reading, without diagnosis of hypertension; I10 Essential (primary) hypertension; M25.512 Pain in left shoulder; I25.10 Atherosclerotic heart disease of native coronary artery without angina pectoris; M17.0 Bilateral primary osteoarthritis of knee; M79.671 Pain in right foot; M79.672 Pain in left foot; F11.11 Opioid abuse, in remission; Z79.899 Other long term (current) drug therapy; Z13.31 Encounter for screening for depression; Z13.39 Encounter for screening examination for other mental health and behavioral disorders | CPT/HCPCS: 83036; 93005; 96127; 96160; 99212; 99397 ==

== ENCOUNTER 2025-06-16 11:43 | Outpatient (REF) | payer MEDICARE, SELFPAY ==
--- NOTE | ~2025-06-16 | XR_ITS ---
EXAMINATION: XR SHOULDER, LEFT CLINICAL INFORMATION: M25.519 - Pain in unspecified shoulder COMPARISON: X-ray 07/29/2024 TECHNIQUE: AP external rotation, Grashey, scapular Y, and axillary views of the left shoulder. FINDINGS: Severe glenohumeral arthritis. Redemonstrated screw fixation of the coracoid process. Mild-moderate acromioclavicular arthritis . No acute osseous findings.. No abnormal soft tissue calcification. XR/XR shoulder LT min 2V IMPRESSION: Severe glenohumeral arthritis, interval progression. No acute findings Electronically signed by: Kd Corey MD 06/17/2025 01:10 PM EST
[2025-06-16 11:56] LABS: MANUAL DIFF FLAG NO
[2025-06-16 12:48] LABS: Hematocrit 43.3 % (42.0-52.0); Hemoglobin 14.1 g/dl (14.0-18.0); Imm Gran Abs Auto 0.04 X10*3/uL (0.00-0.03); Imm Gran Pct Auto 0.3 % (0.0-0.4); Lymphocytes Absolute Auto 4.1 X10*3/uL (1.2-4.9); Mean Corpuscular HGB Conc 32.6 g/dl (31.0-36.0); Mean Corpuscular Hemoglobin 31.1 pg (27.0-33.0); Mean Corpuscular Volume 95.4 fL (80.0-98.0); NRBC Abs Auto 0.000 X10*3/uL (0.0-0.012); NRBC Pct Auto 0.0 /100WBC (0.0-0.2); Platelet Count 298 X10*3/uL (160-400); Red Blood Count 4.54 X10*6/uL (4.60-5.80); White Blood Count 11.8 X10*3/uL (4.8-10.8)
[2025-06-16 13:26] LABS: Alanine Aminotransferase 44 U/L (0-40); Albumin Level 4.7 g/dL (3.5-5.0); Alkaline Phosphatase 115 U/L (39-117); Anion Gap 12 (12-20); Aspartate Amino Transferase 31 U/L (5-37); Blood Urea Nitrogen 11 mg/dL (9-16); Calcium 9.4 mg/dL (8.4-10.2); Carbon Dioxide 26 mmol/L (22-29); Chloride 108 mmol/L (96-108); Cholesterol 106 mg/dL (<200); Estimated Glomerular Filt Rate > 60; HDL Cholesterol 45 mg/dL (>40); Potassium 4.0 mmol/L (3.3-5.1); Sodium 142 mmol/L (135-145); Total Protein 7.4 g/dL (6.5-8.0); Triglycerides 103 mg/dL (<150)
[2025-06-16 13:44] LABS: Appearance Urine Clear; Glucose Urine UA Negative (Negative); PH 5.5 (5.0-9.0); Specific Gravity - Urine 1.020 (1.005-1.025)
[2025-06-16 13:51] LABS: Folate 11.8 ng/mL (> or = 4.0); Vitamin B12 371 pg/mL (200-900)
[2025-06-16 14:28] LABS: Microalbum/Creatinine Ratio Ur 12.3 ug/mg cr (<30)
== END 2025-06-16 11:44 | disposition home or self-care (01) ==
LOC: HO.HOSX 11:43
PROVIDERS: PCP Family Medicine; Referring Provider Family Medicine; Visit Provider Physician Assistant
DX: M19.012 Primary osteoarthritis, left shoulder (principal); I10 Essential (primary) hypertension; Z00.00 Encounter for general adult medical examination without abnormal findings; Z12.5 Encounter for screening for malignant neoplasm of prostate; E53.8 Deficiency of other specified B group vitamins; E55.9 Vitamin D deficiency, unspecified; F17.210 Nicotine dependence, cigarettes, uncomplicated
CPT/HCPCS: 36415; 73030; 80053; 80061; 81003; 82043; 82306; 82570; 82607; 82746; 84153; 84443; 85025; 99212

== ENCOUNTER → 2025-06-16 12:01 | Outpatient (BNV) | payer MEDICARE, SELFPAY | PROVIDERS: PCP Family Medicine; Referring Provider Family Medicine; Visit Provider Radiology Diagnostic Ultrasound | DX: M19.012 Primary osteoarthritis, left shoulder (principal) | CPT/HCPCS: 73030 ==

== ENCOUNTER 2025-06-16 12:38 | Outpatient (AMB) | payer MEDICARE, SELFPAY ==
--- NOTE | 2025-06-16 12:54 | MHC.OFFVIS ---
Intake Visit Reasons: OV - Left Shoulder Pain Intake Note: Goran is a 64 year old right hand dominant male who presents today for a follow up of his left shoulder pain. Patient reports ongoing pain in his shoulder. He notices that he is limited to ROM. Patient had shoulder surgery when he was 17. Allergies Penicillins (PENICILLINS) Allergy (Unknown, Verified 06/16/25 13:06) UNKNOWN HPI HPI OV - Left Shoulder Pain: Details: Mr. Hoskins is a 64-year-old male who presents to the office today for chronic left shoulder pain. He reports the pain has been present for greater than 2 years. He has begun to notice that his range of motion has been drastically decreasing and he is having difficulty even reaching the side of his head. Of note, the patient did have surgery when he was 17 and does have orthopedic hardware in the coracoid. Patient has tried intra-articular cortisone injections in the past with minimal relief. [facility] Medical History History of [place] (myocardial infarction) Asthma Arthritis Surgical History H/O shoulder surgery (~1976) H/O heart artery stent (~2001) Family History Sister Substance abuse Social History Housing: Apartment Patient Tobacco Use Status: Current everyday Tobacco user Cigarette Packs Per Day: 1 e-Cigarette/Vaping Use: Never Used Second Hand Smoke Exposure: No service: No Current occupational status: employed Current occupation: R[employer] Current occupational exposures/hazards: No Cognitive needs: No Hearing needs: No Vision needs: No Review of Systems Const All systems reviewed & are unremarkable except as noted in HPI and below Physical Exam Const General: cooperative, healthy appearing and no acute distress Resp Effort & Inspection: normal respiratory effort and able to speak in complete sentences Extrem Other: Left shoulder 45 degrees of forward flexion and abduction. Able to reach greater troch. Unable to assess empty can or drop arm due to range of motion restrictions. NVI. Psych Appearance: grossly normal Mental Status: mental status grossly normal Attitude: cooperative Assessment & Plan Assessment & Plan (1) Arthritis of left glenohumeral joint: Code(s): M19.012 - Primary osteoarthritis, left shoulder Category: Medical Plan Mr. Hoskins is a 64-year-old male who presents to the office today for chronic left shoulder pain. He reports the pain has been present for greater than 2 years. He has begun to notice that his range of motion has been drastically decreasing and he is having difficulty even reaching the side of his head. Of note, the patient did have surgery when he was 17 and does have orthopedic hardware in the coracoid. Patient has tried intra-articular cortisone injections in the past with minimal relief. While the office today, we discussed the possibility of total shoulder arthroplasty due to the patient's extreme range of motion limitations and pain. The patient does have orthopedic hardware in the coracoid process from a prior surgery when he was 17. At this time, I have referred the patient to Dr. Kendrick for further discussion of total joint replacement for the left shoulder. Patient has a past medical history significant for myocardial infarction in 2001 with stenting. The patient does have a history of opioid abuse but is currently in remission which was discussed at his PCP visit with Dr. Ortiz on 04/30/2025. X-rays of the left shoulder which were obtained while in the office today and were reviewed by me, Izabel Guy PA-C, revealed significant glenohumeral joint osteoarthritis. Orders: Orders XR shoulder LT min 2V Today M25.519 - Pain in unspecified shoulder Coding Level of Care Code Est Pt Level 4 (46694) Diagnoses Arthritis of left glenohumeral joint M19.012
== END 2025-06-16 14:50 | disposition home or self-care (01) ==
PROVIDERS: PCP Family Medicine; Visit Provider Physician Assistant
DX: M19.012 Primary osteoarthritis, left shoulder (principal)
CPT/HCPCS: 99214

== ENCOUNTER 2025-06-22 10:54 | Outpatient (AMB) | payer MEDICARE, SELFPAY ==
--- NOTE | 2025-06-22 10:59 | A.OFFVIS_ITS ---
Vital Signs 06/22/25 11:00 Height 6 ft 2 in Weight 198 lb BMI 25.4 Intake Visit Reasons: OV-Discuss RTC for LT shoulder Intake Note: Goran is a 64 year old right hand dominant male who presents today for a follow up of his left shoulder. He was last seen with [place] where he reported ongoing pain for more than 2 years & a history of a Left Shoulder surgery in which spear rdware was placed in the coracoid. He continues to have Limitations in ROM & AODL. Patient presents today for discussion of possible surgery. History of Opioid abuse, in remission & Myocardial Infarction with stenting 2001. Allergies Penicillins (PENICILLINS) Allergy (Unknown, Verified 06/22/25 11:01) UNKNOWN HPI HPI OV-Discuss RTC for LT shoulder: Details: Goran is a 64 year old right hand dominant male who presents today for a follow up of his left shoulder. He was last seen with [facility] where he reported ongoing pain for more than 2 years & a history of a Left Shoulder surgery in which hardware was placed in the coracoid. He continues to have Limitations in ROM & AODL. Patient presents today for discussion of possible surgery. He denies having had an injection although I do see a left shoulder arthrogram from 2022. He states he has pain with daily activities and severe restriction of range of motion. He denies any recent injury. He states he was initially treated for shoulder instability. History of Opioid abuse, in remission & Myocardial Infarction with stenting 2001. 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 He has only 10 degrees of external rotation of the left shoulder compared to 40 on the contralateral side. Passive abduction to 70 with pain. Active abduction similarly limited with pain. Vital Signs: BMI result Body Mass Index 25.4 Results Reviewed Results Reviewed: I personally reviewed relevant radiographs. Progressive and severe osteoarthritis of the left shoulder with the coracoid screw present and in expected postop position with no obvious hardware complications. Assessment & Plan Assessment & Plan (1) Arthritis of left glenohumeral joint: Code(s): M19.012 - Primary osteoarthritis, left shoulder Category: Medical Plan: 64-year-old gentleman with history of left shoulder instability status post surgery with coracoid screw placement. Unclear exactly what type of surgery this was but he now has signs and symptoms of osteoarthritis. Does appear like he has had a shoulder injection in the remote past but he denies it. Regardless I recommend a shoulder injection. I think he may indeed be a candidate for shoulder arthroplasty but he wants to get through the holidays and I would like to talk to him after he has a shoulder injection because I do think his motion could improve without exacerbating his symptoms. He will see me back in 3 months' time. Coding Level of Care Code Est Pt Level 4 (36753) Diagnoses Arthritis of left glenohumeral joint M19.012
[2025-06-22 11:00] VITALS: BMI 25.4
== END 2025-06-22 11:26 | disposition home or self-care (01) ==
PROVIDERS: PCP Family Medicine; Visit Provider Orthopaedic Surgery
DX: M19.012 Primary osteoarthritis, left shoulder (principal)
CPT/HCPCS: 99214

== ENCOUNTER → 2025-06-22 10:54 | Outpatient (BNVA) | payer MEDICARE, SELFPAY | PROVIDERS: PCP Family Medicine; Visit Provider Orthopaedic Surgery | DX: Z71.2 Person consulting for explanation of examination or test findings (principal); M19.012 Primary osteoarthritis, left shoulder | CPT/HCPCS: 99212 ==

== ENCOUNTER 2025-07-10 08:45 | Outpatient (AMB) | payer MEDICARE, SELFPAY ==
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
[2025-07-10 08:54] VITALS: BP 184/76; PULSE 85; RESP 16; O2SAT 100; BMI 27.7
== END 2025-07-10 09:39 | disposition home or self-care (01) ==
PROVIDERS: PCP Family Medicine; Visit Provider Internal Medicine
DX: M17.12 Unilateral primary osteoarthritis, left knee (principal); M17.0 Bilateral primary osteoarthritis of knee; M19.012 Primary osteoarthritis, left shoulder
CPT/HCPCS: 20611; 99204

== ENCOUNTER → 2025-07-10 08:45 | Outpatient (BNVA) | payer MEDICARE, SELFPAY | PROVIDERS: PCP Family Medicine; Visit Provider Internal Medicine | DX: M17.0 Bilateral primary osteoarthritis of knee (principal); M19.012 Primary osteoarthritis, left shoulder | CPT/HCPCS: 20611; 99202 ==

== ENCOUNTER 2025-07-17 08:59 | Outpatient (AMB) | payer MEDICARE, SELFPAY ==
--- NOTE | 2025-07-17 09:05 | MHC.OFFVIS ---
Intake Visit Reasons: Inj-B/L knee cortisone-last 04/17/25 Intake Note: Goran is a 64 year old male who presents today for a repeat injection for his bilateral knees, last injection 04/17/25. Patient reports his last injections gave him relief and would like to repeat. Allergies Penicillins (PENICILLINS) Allergy (Unknown, Verified 07/17/25 09:06) UNKNOWN HPI HPI Inj-B/L knee cortisone-last 04/17/25: Details: Patient is a 64-year-old male who presents to the office today for chronic bilateral knee pain. He received cortisone injections roughly every 3 months. His last cortisone injection was 04/17/2025. He is looking to repeat cortisone injections while in the office today. 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 No ecchymosis, erythema, or joint effusion. Tenderness to palpation along the medial and lateral joint lines. Full knee extension and flexion with crepitus. NVI. Psych Appearance: grossly normal Mental Status: mental status grossly normal Attitude: cooperative Office Procedures AMB Joint Injection/Aspiration Joint Injection/Aspiration Primary Site: Right Knee Secondary Site: Left Knee Prep: site was prepped using aseptic technique, ethochloride spray was applied and injection warnings given Injected: 40 mg of, Decadron, with 3 mL of, 1% plain Lidocaine, 0.25% Bupivacaine and in the joint Approach Used: anterolateral Procedure: The patient tolerated the procedure well, but had some pain with the injection and there was some relief with the local anesthesia Coding 40484 - Bilateral Large Joint Procedure code (CPT) selection complete Assessment & Plan Assessment & Plan (1) Osteoarthritis of right knee: Code(s): M17.11 - Unilateral primary osteoarthritis, right knee Category: Medical (2) Osteoarthritis of left knee: Code(s): M17.12 - Unilateral primary osteoarthritis, left knee Category: Medical Plan The patient was offered a cortisone injection in bilateral knees. The patient was explained the risks, benefits, and alternatives to receiving this injection. After receiving consent for the injection, the patient had the procedure done while in the office today. The patient tolerated the procedure well with no complications. The risks, benefits, and alternatives to a corticosteroid injection were discussed with the patient, including the potential benefits of decreased inflammation and pain, improved function, and diagnostic value. Risks were reviewed, including post-injection flare, skin or fat atrophy, transient facial flushing, temporary elevation in blood glucose, bruising, and rare but serious complications such as infection, tendon weakening or rupture, and cartilage damage with repeated injections. Procedure-related discomfort and possible vasovagal symptoms were also explained. Alternatives were reviewed, including NSAIDs, physical therapy, activity modification, bracing, ice/heat, weight management, hyaluronic acid injections when appropriate, PRP or other orthobiologics, oral steroids, surgery depending on pathology, and observation. The patient verbalized understanding and elected to proceed. After receiving consent for the injection, the patient had the procedure done while in the office today. The patient tolerated the procedure well with no complications. Follow-up will be PRN, or sooner if needed Coding Level of Care Code Est Pt Level 3 (52057) Add On Problem Visit Only Diagnoses Osteoarthritis of right knee M17.11 Osteoarthritis of left knee M17.12 CPT Codes Coding - 29664 - Bilateral Large Joint: 73841 - Bilateral Large Joint ([id number])
== END 2025-07-17 09:19 | disposition home or self-care (01) ==
LOC: HO.HOS 08:59
PROVIDERS: PCP Family Medicine; Visit Provider Physician Assistant
DX: M17.0 Bilateral primary osteoarthritis of knee (principal)
CPT/HCPCS: 20610

== ENCOUNTER → 2025-07-17 08:59 | Outpatient (BNVA) | payer MEDICARE, SELFPAY | PROVIDERS: PCP Family Medicine; Visit Provider Physician Assistant | DX: M17.0 Bilateral primary osteoarthritis of knee (principal) | CPT/HCPCS: 20610; J0665; J1100; J2003 ==